=== PATIENT | female | born 1925 | race Caucasian/White ===

== ENCOUNTER 2016-10-14 03:14 | Inpatient (IN) | payer OTHER, MEDICARE ==
[2016-10-14] VITALS (11 sets, daily range): BP systolic 135–186; BP diastolic 67–88; PULSE 67–98; RESP 16–18; TEMP 96.5–99.5; O2SAT 93–100
[~2016-10-14] VITALS: Ht 157.5 cm; Wt 43.2 kg
[~2016-10-14 03:14] MED LIST: ASPI81TA82 PO; CHOL1CAP6 PO; DONE5TAB14 PO; NAME10TA PO; OCUVTAB PO; VITA400C36
--- NOTE | 2016-10-14 03:26 | PD ---
HPI Chief Complaint: Fall Time Seen by Provider: 03:19 Travel History International Travel<30 days: No Contact w/Intl Traveler<30days: No Traveled to known affect area: No History of Present Illness HPI 89-year-old female presents [facility] emergency department [facility] where she had a witnessed non-syncopal fall. Patient did hit her head and sustained a contusion with hematoma to the left forehead. Patient also injured her left wrist with obvious deformity. Patient is currently a [facility] of [facility] for rehabilitation of a right hip fracture. Patient is presently on Lovenox. Patient did not have loss of consciousness. Patient has history of dementia and is a poor historian. Patient presents via EMS transport with cervical collar in place and left wrist splinted. No obvious lower extremity shortening or internal or external rotation noted on exam. Patient reportedly was wearing an alarm padron and had managed to unbuckle the belt and stand up and when staff walked and upon her she lost her balance and fell. Patient has had no change in mentation reportedly since event. En route to the hospital patient received Zofran 4 mg IV and morphine sulfate 10 mg IV. [facility] Past Medical History Narrative Medical Dementia, hip fracture, Lovenox therapy, uti, appendectomy, hysterectomy, cystocele repair, no tobacco use; nursing notes reviewed Hx Anticoagulant Therapy: Yes (LOVENOX) Cancer: No Cardiovascular Problems: No Diabetes: No Endocrine: No Genitourinary: No Hepatitis: No Hiatal Hernia: No Immune Disorder: No Musculoskeletal: No Neurologic: No Psychiatric: No Reproductive: No Respiratory: No Thyroid Disease: No Past Surgical History Abdominal Surgery: Yes (APPENDECTOMY) Cardiac Surgery: No Endocrine Surgery: No Gynecologic Surgery: Yes (HYSTERECTOMY) Joint Replacement: No Pacemaker: No Thoracic Surgery: No Social History Tobacco Use: No Allergies-Medications (Allergen,Severity, Reaction): Coded Allergies: Exelon (Verified Allergy, Unknown, 10/14/16) Gabapentin (Verified Allergy, Unknown, 10/14/16) Rivastigmine (Verified Allergy, Unknown, 10/14/16) Uncoded Allergies: NKDA (Allergy, Unknown, 02/09/03) NONE (Allergy, Unknown, 02/09/03) Reported Meds & Prescriptions Reported Meds & Active Scripts Active Aspirin 325 Mg Tab 325 Mg PO DAILY Start Aspirin after Lovenox is completed. Lovenox Inj (Enoxaparin Sodium) 40 Mg/0.4 Ml Syr 40 Mg SQ DAILY Start Aspirin after Lovenox is completed. [place] (Hydrocodone-Acetaminophen) 5-325 mg Tab 1-2 Tab PO Q4H PRN Reported Senokot S (Sennosides-Docusate Sodium) 8.6-50 Mg Tab 2 Tab PO DAILY Docusate Sodium 100 Mg Cap 100 Mg PO BID Zoloft (Sertraline HCl) 50 Mg Tab 50 Mg PO DAILY Polyethylene Glycol 3350 Powder (Polyethylene Glycol) 17 Gm Pow 17 Gm PO DAILY Pantoprazole (Pantoprazole Sodium) 40 Mg Tab 40 Mg PO DAILY Latanoprost Opth Drops (Latanoprost) 0.005% Drops 1 Drop EACH EYE HS Refrigerate until opened. Donepezil 5 Mg Tab 5 Mg PO HS Review of Systems ROS Limitations: Clinical Condition, Poor Historian Physical Exam Narrative GENERAL: Elderly female in no acute distress no respiratory distress; GCS 14, baseline dementia with confusion poor historian. SKIN: Warm and dry. HEAD: Atraumatic. Normocephalic. Except for hematoma to the left temporal forehead. EYES: Pupils previous cataract surgery. No scleral icterus. No injection or drainage. ENT: No nasal bleeding or discharge. Mucous membranes pink and moist. NECK: Trachea midline. No JVD. Cervical collar in place. CARDIOVASCULAR: Regular rate and rhythm. RESPIRATORY: No accessory muscle use. Clear to auscultation. Breath sounds equal bilaterally. GASTROINTESTINAL: Abdomen soft, non-tender, nondistended. Hepatic and splenic margins not palpable. MUSCULOSKELETAL: Extremities without clubbing, cyanosis, or edema. Left wrist with obvious deformity, capillary refill brisk and less than 2 seconds per digit , no puncture wound or laceration, proximal left upper extremity without deformity or tenderness or skin tear; bilateral lower extremities no limb length discrepancy; bilateral dorsalis pedis pulses 2+ to palpation.. NEUROLOGICAL: Awake and alert. No obvious cranial nerve deficits. Motor grossly within normal limits. Five out of 5 muscle strength in the arms and legs. Normal speech. Data Data Last Documented VS Orders Electrocardiogram (10/14/16 03:19) Complete Blood Count With Diff (10/14/16 03:19) Comprehensive Metabolic Panel (10/14/16 03:19) Prothrombin Time / Inr (Pt) (10/14/16 03:19) Act Partial Throm Time (Ptt) (10/14/16 03:19) Type And Screen (10/14/16 03:19) Chest, Single Ap (10/14/16 03:19) Iv Access Insert/Monitor (10/14/16 03:19) Oximetry (10/14/16 03:19) Ecg Monitoring (10/14/16 03:19) Sodium Chloride 0.9% Flush (Ns Flush) (10/14/16 03:30) NPO (10/14/16 03:19) Wrist, Complete (Khh3ted) (10/14/16 ) Ct Brain W/O Iv Contrast(Rout) (10/14/16 ) Ct Cerv Spine W/O Contrast (10/14/16 ) Ct Pelvis W/O Iv Contrast (10/14/16 ) Pelvis, Ap Only (Routine) (10/14/16 03:19) Urinary Catheter Insert/Apply (10/14/16 05:11) Urinalysis - C+S If Indicated (10/14/16 05:11) Splint Or Brace Apply/Monitor (10/14/16 05:11) Admit To Inpatient (10/14/16 ) Vital Signs (Adult) Q4H (10/14/16 05:21) Activity Bed Rest (10/14/16 05:21) Intake + Output ANGELICA.QSHIFT (10/14/16 05:21) Sodium Chlor 0.9% 1000 Ml Inj (Ns 1000 M (10/14/16 05:21) Sodium Chloride 0.9% Flush (Ns Flush) (10/14/16 05:30) Sodium Chloride 0.9% Flush (Ns Flush) (10/14/16 09:00) Ondansetron Inj (Zofran Inj) (10/14/16 05:30) Bisacodyl Supp (Dulcolax Supp) (10/14/16 05:30) Comprehensive Metabolic Panel (10/15/16 06:00) Complete Blood Count With Diff (10/15/16 06:00) Acetaminophen (Tylenol) (10/14/16 05:30) Acetamin-Hydrocod 325-5 Mg ([place] 5-325 (10/14/16 05:30) Morphine Inj (Morphine Inj) (10/14/16 05:30) Inpatient Certification (10/14/16 ) Alprazolam (Xanax) (10/14/16 05:30) Docusate Sodium (Colace) (10/14/16 09:00) Donepezil (Aricept) (10/14/16 21:00) Latanoprost 0.005% Opth Soln (Xalatan 0. (10/14/16 21:00) Pantoprazole (Protonix) (10/14/16 09:00) Polyethylene Glycol (Miralax) (10/14/16 09:00) Quetiapine (Seroquel) (10/14/16 09:00) Docusate Sodium-Senna (Jennifer-Colace) (10/14/16 09:00) Sertraline (Zoloft) (10/14/16 09:00) NPO (10/14/16 05:28) Admit Order (Ed Use Only) (10/14/16 ) ^ Saline Lock (10/14/16 05:37) Resp Oxygen Alejandro C Titrat 1-4 L (10/14/16 ) Notify Dr: Other (10/14/16 05:37) Sodium Chloride 0.9% Flush (Ns Flush) (10/14/16 09:00) Sodium Chloride 0.9% Flush (Ns Flush) (10/14/16 05:45) Consult Orthopedic (10/14/16 05:37) Labs MDM Medical Decision Making Medical Screen Exam Complete: Yes Emergency Medical Condition: Yes Medical Record Reviewed: Yes Interpretation(s) EKG: Normal sinus rhythm rate 68 artifact is present at baseline but no apparent ST segment elevation ST segment depression ectopy or obvious abnormality CT pelvis w/o: CONCLUSION: 1. Nondisplaced mildly impacted fracture through the neck of the proximal left femur 2. Primary degenerative changes of the lower lumbar spine and pelvis. Ceasar Duran MD on October 14, 2016 at 4:30 Board Certified Radiologist. This report was verified electronically. CT cerv spine w/o: CONCLUSION: 1. No acute bony fracture. 2. Primary bony degenerative changes, disc degeneration and disc space narrowing throughout the cervical spine. 3. Bilateral facet arthritis at multiple levels. Left wrist xr: FINDINGS: There is diffuse soft tissue swelling around the wrist. Bony structures are osteopenic. There is a nondisplaced transverse fracture through the distal radius with extension to the articular surface. There is a nondisplaced avulsion fracture of the ulnar styloid process. No joint dislocation. There are degenerative changes of the first carpometacarpal joint. CONCLUSION: Collies fracture of the left wrist. Ceasar Duran MD on October 14, 2016 at 4:40 Board Certified Radiologist. This report was verified electronically. Ceasar Duran MD on October 14, 2016 at 4:26 Board Certified Radiologist. This report was verified electronically. brain w/o : CONCLUSION: 1. Bilateral cortical atrophy. Otherwise unremarkable CT brain for patient's age. 2. Focal soft tissue swelling left frontal/parietal area. Ceasar Duran MD on October 14, 2016 at 4:25 Board Certified Radiologist. This report was verified electronically. Pelvis xr: CONCLUSION: Nondisplaced fracture through the neck of the proximal left femur. Ceasar Duran MD on October 14, 2016 at 4:38 Board Certified Radiologist. This report was verified electronically. Differential Diagnosis Fall, minor closed head injury, ICH, cervical spine fracture subluxation cord injury, wrist fracture, pelvic fracture, hip fracture, coagulopathy, ACS, electrolyte disturbance, UTI, anemia Narrative Course Patient placed on monitor worker cervical collar In place and wrist splint replaced after direct visualization without evidence of open fracture; specimens collected and sent for resulting EKG performed which reveals no acute injury pattern change. Imaging studies ordered. At 4:20 AM patient's daughter is at bedside reports that she had a non-syncopal fall last Saturday with a right hip fracture had surgery on Saturday by Dr. Wolf and was admitted to rehabilitation facility on Saturday10/12/16. At 5:05 AM imaging studies resulted CT brain noncontrast reveals no acute intracranial abnormality atrophy is present; CT cervical spine reveals no acute bony injury chronic changes are noted, c-collar removed by me @ 5:05 am; CT pelvis noncontrast reveals nondisplaced femoral neck fracture and previous right hip fracture repairstable; chest x-ray no acute abnormality; left wrist x -ray reveals distal radius fracture without impaction or displacement that is intra-articular along with ulnar fractureColles' fracture; pelvic x-ray reveals femoral neck fracture. Family at bedside informed of imaging results. Call placed to orthopedic serviceDr. Wolf -discussed with Dr Titus Call placed to Dr Sanchez will accept patient for management of fractures/admit to medicine Last Lovenox administration confirmed 9AM 10/13/16 Physician Communication Physician Communication call placed to patient's orthopedist Dr Wolf --discussed with Dr Titus; call placed to Dr Sanchez will accept patient -keep npo; accepted by Dr Kee [facility] service Diagnosis Primary Impression: Closed left hip fracture Qualified Code: S72.002A - Closed left hip fracture, initial encounter Additional Impression: Closed fracture of left wrist Qualified Code: S62.102A - Closed fracture of left wrist, initial encounter Admitting Information Admitting Physician Requests: Admit Scripts Quetiapine (Seroquel)50 Mg Tab50 Mg PO HS #30 TAB Ref 0 Prov:Victorino Stein MD 10/18/16 Quetiapine (Seroquel)25 Mg Tab25 Mg PO AC BREAKFAST #60 TAB Ref 0 Prov:Victorino Stein MD 10/18/16 Magnesium Hydroxide Liq (Milk of Magnesia Liq)400 Mg/5 Ml Susp30 Ml PO DAILY PRN (CONSTIPATION) 30 Days Prov:Victorino Stein MD 10/18/16 Dronabinol (Marinol)2.5 Mg Cap2.5 Mg PO BID@11,16 #14 CAP Prov:Victorino Stein MD 10/18/16 Aspirin 325 Mg Rnw776 Mg PO DAILY #30 TAB Ref 0 Start Aspirin after Lovenox is completed. Prov:Jani Sanchez MD 10/14/16 Enoxaparin Inj (Lovenox Inj)40 Mg/0.4 Ml Syr40 Mg SQ DAILY #10 SYRINGE Ref 0 Start Aspirin after Lovenox is completed. Prov:Jani Sanchez MD 10/14/16 Hydrocodone-Acetaminophen ([place])5-325 mg Tab1-2 Tab PO Q4H PRN (PAIN) #60 TAB Ref 0 Prov:Jani Sanchez MD 10/14/16 Reta Hampton MD October 14, 2016 03:26 Reta Hampton MD October 14, 2016 03:26 1. No acute bony fracture. 2. Primary bony degenerative changes, disc degeneration and disc space narrowing throughout the cervical spine. 3. Bilateral facet arthritis at multiple levels. Left wrist xr: FINDINGS: There is diffuse soft tissue swelling around the wrist. Bony structures are osteopenic. There is a nondisplaced transverse fracture through the distal radius with extension to the articular surface. There is a nondisplaced avulsion fracture of the ulnar styloid process. No joint dislocation. There are degenerative changes of the first carpometacarpal joint. CONCLUSION: Collies fracture of the left wrist. Ceasar Duran MD on October 14, 2016 at 4:40 Board Certified Radiologist. This report was verified electronically. Ceasar Duran MD on October 14, 2016 at 4:26 Board Certified Radiologist. This report was verified electronically. brain w/o : CONCLUSION: 1. Bilateral cortical atrophy. Otherwise unremarkable CT brain for patient's age. 2. Focal soft tissue swelling left frontal/parietal area. Ceasar Duran MD on October 14, 2016 at 4:25 Board Certified Radiologist. This report was verified electronically. Pelvis xr: CONCLUSION: Nondisplaced fracture through the neck of the proximal left femur. Ceasar Duran MD on October 14, 2016 at 4:38 Board Certified Radiologist. This report was verified electronically. Differential Diagnosis Fall, minor closed head injury, ICH, cervical spine fracture subluxation cord injury, wrist fracture, pelvic fracture, hip fracture, coagulopathy, ACS, electrolyte disturbance, UTI, anemia Narrative Course Patient placed on monitor worker cervical collar In place and wrist splint replaced after direct visualization without evidence of open fracture; specimens collected and sent for resulting EKG performed which reveals no acute injury pattern change. Imaging studies ordered. At 4:20 AM patient's daughter is at bedside reports that she had a non-syncopal fall last Saturday with a right hip fracture had surgery on Saturday by Dr. Wolf and was admitted to rehabilitation facility on Saturday10/12/16. At 5:05 AM imaging studies resulted CT brain noncontrast reveals no acute intracranial abnormality atrophy is present; CT cervical spine reveals no acute bony injury chronic changes are noted, c-collar removed by me @ 5:05 am; CT pelvis noncontrast reveals nondisplaced femoral neck fracture and previous right hip fracture repairstable; chest x-ray no acute abnormality; left wrist x -ray reveals distal radius fracture without impaction or displacement that is intra-articular along with ulnar fractureColles' fracture; pelvic x-ray reveals femoral neck fracture. Family at bedside informed of imaging results. Call placed to orthopedic serviceDr. Wolf -discussed with Dr Titus Call placed to Dr Sanchez will accept patient for management of fractures/admit to medicine Last Lovenox administration confirmed 9AM 10/13/16 Physician Communication Physician Communication call placed to patient's orthopedist Dr Wolf --discussed with Dr Titus; call placed to Dr Sanchez will accept patient -keep npo; accepted by Dr Kee [facility] service Diagnosis Primary Impression: Closed left hip fracture Qualified Code: S72.002A - Closed left hip fracture, initial encounter Additional Impression: Closed fracture of left wrist Qualified Code: S62.102A - Closed fracture of left wrist, initial encounter Admitting Information Admitting Physician Requests: Admit Reta Hampton MD October 14, 2016 03:26
[2016-10-14] MEDS ORDERED: SODIUM CHLORIDE 0.9% FLUSH 10 ML FLUSH IVF PRN ×2 (03:30→05:45)
[2016-10-14] MEDS ORDERED: DONE5TAB7 PO (03:39)
[2016-10-14] MEDS ORDERED: LATA0.002 EACH EYE (03:41)
[2016-10-14] MEDS ORDERED: POLY17S PO (03:41)
[2016-10-14] MEDS ORDERED: PANT40TA3 PO (03:41)
[2016-10-14] MEDS ORDERED: DOCU100C PO (03:42)
[2016-10-14] MEDS ORDERED: ZOLO50TA PO (03:42)
[2016-10-14] MEDS ORDERED: SERO25TA PO (03:43)
[2016-10-14] MEDS ORDERED: NYST1000 SWISH-SWAL (03:44)
[2016-10-14] MEDS ORDERED: ALPR.5 PO (03:44)
[2016-10-14] MEDS ORDERED: ENOX30P SQ (03:45)
[2016-10-14] MEDS ORDERED: HYDRLIQ11 PO (03:46)
[2016-10-14] MEDS ORDERED: MILKSUS PO (03:46)
[2016-10-14] MEDS ORDERED: SENN1TAB17 PO (03:47)
[2016-10-14] MEDS ORDERED: ACET1CAP18 PO (03:47)
[2016-10-14 04:01] LABS: AUTOMATED NEUTROPHIL # 4.4 TH/MM3 (1.8-7.7); BASOPHIL # 0.1 TH/MM3 (0-0.2); BASOPHIL % 0.8 % (0.0-2.0); EOSINOPHIL # 0.2 TH/MM3 (0-0.4); EOSINOPHIL % 3.1 % (0.0-4.0); HEMO FLAGS DIFF FINAL; LYMPH % 17.4 % (9.0-44.0); LYMPHOCYTE # 1.1 TH/MM3 (1.0-4.8); MEAN CELL VOLUME 83.4 FL (80.0-100.0); MEAN CORPUSCULAR HEMOGLOBIN 26.7 PG (27.0-34.0); MONO % 7.9 % (0.0-8.0); NEUT % 70.8 % (16.0-70.0); PLATELET COUNT 389 TH/MM3 (150-450); RED BLOOD COUNT 4.08 MIL/MM3 (4.00-5.30); RED CELL DISTRIBUTION WIDTH 14.9 % (11.6-17.2); WHITE BLOOD COUNT 6.2 TH/MM3 (4.0-11.0)
[2016-10-14 04:16] LABS: APTT (PATIENT) 28.5 SEC (24.3-30.1); INTERNATIONAL NORMALIZED RATIO 1.1 RATIO; PROTHROMBIN TIME - PATIENT 12.1 SEC (9.8-11.6)
[2016-10-14 04:21] LABS: ALT (GPT) 29 U/L (10-53); ANION GAP 7 MEQ/L (5-15); AST (GOT) 25 U/L (15-37); BICARBONATE 29.6 MEQ/L (21.0-32.0); BLOOD UREA NITROGEN 21 MG/DL (7-18); CHLORIDE 107 MEQ/L (98-107); GLOMERULAR FILTRATION RATE 91 ML/MIN (>89); POTASSIUM 3.5 MEQ/L (3.5-5.1); SODIUM (NA) 144 MEQ/L (136-145)
[2016-10-14 04:23] LABS: ALKALINE PHOSPHATASE 64 U/L (45-117); TOTAL BILIRUBIN ADULT 0.3 MG/DL (0.2-1.0)
--- NOTE | 2016-10-14 04:28 | RADRPT ---
EXAM DATE/TIME: 10/14/2016 03:59 [facility] COMPARISON: No previous studies available for comparison. INDICATIONS : Trauma, fall. Hematoma to left side of head. RADIATION DOSE: 53.84 CTDIvol (mGy) MEDICAL HISTORY : Dementia. SURGICAL HISTORY : Appendectomy. Hysterectomy. ENCOUNTER: Initial ACUITY: 1 day PAIN SCALE: 5/10 LOCATION: cranial TECHNIQUE: Multiple contiguous axial images were obtained of the head. Using automated exposure control and adj ustment of the mA and/or kV according to patient size, radiation dose was kept as low as reasonably a chievable to obtain optimal diagnostic quality images. FINDINGS: CEREBRUM: The ventricles are normal for age. There is bilateral cortical atrophy. Chronic white matter changes are seen bilaterally. No evidence of midline shift, mass lesion, hemorrhage or acute infarction. No extra-axial fluid collections are seen. POSTERIOR FOSSA: The cerebellum and brainstem are intact. The 4th ventricle is midline. The cerebellopontine angle i s unremarkable. EXTRACRANIAL: The visualized portion of the orbits is intact. Focal soft tissue swelling over left frontal parietal area SKULL: The calvaria is intact. No evidence of skull fracture. CONCLUSION: 1. Bilateral cortical atrophy. Otherwise unremarkable CT brain for patient's age. 2. Focal soft tissue swelling left frontal/parietal area. Ceasar Duran MD on October 14, 2016 at 4:25 Board Certified Radiologist. This report was verified electronically.
--- NOTE | 2016-10-14 04:31 | RADRPT ---
EXAM DATE/TIME: 10/14/2016 03:59 [facility] COMPARISON: No previous studies available for comparison. INDICATIONS : Trauma, fall. RADIATION DOSE: 21.29 CTDIvol (mGy) MEDICAL HISTORY : Dementia. SURGICAL HISTORY : Appendectomy. Hysterectomy. ENCOUNTER: Initial ACUITY: 1 day PAIN SCALE: 0/10 LOCATION: neck TECHNIQUE: Volumetric scanning of the cervical spine was performed. Multiplanar reconstructions in the sagittal, coronal and oblique axial planes were performed. Using automated exposure control and adjustment o f the mA and/or kV according to patient size, radiation dose was kept as low as reasonably achievable to obtain optimal diagnostic quality images. FINDINGS: VERTEBRAE: Normal vertebral body height. No acute bony fracture. There is moderate diffuse primary degenerative changes, disc degeneration and disc space narrowing involving the entire cervical spine. ALIGNMENT: No evidence of subluxation. C2-C3: The bony spinal canal is normal in size. No evidence of disc bulge or herniation. The neural forami na are bilaterally patent. C3-C4: The bony spinal canal is normal in size. No evidence of disc bulge or herniation. The neural forami na are bilaterally patent. Bilateral facet arthritis. C4-C5: The bony spinal canal is normal in size. No evidence of disc bulge or herniation. The neural forami na are bilaterally patent. Bilateral Facet arthritis. C5-C6: The bony spinal canal is normal in size. No evidence of disc bulge or herniation. The neural forami na are bilaterally patent. Bilateral facet arthritis. C6-C7: The bony spinal canal is normal in size. No evidence of disc bulge or herniation. The neural forami na are bilaterally patent. Bilateral facet arthritis C7-T1: The bony spinal canal is normal in size. No evidence of disc bulge or herniation. The neural forami na are bilaterally patent. Bilateral facet arthritis CONCLUSION: 1. No acute bony fracture. 2. Primary bony degenerative changes, disc degeneration and disc space narrowing throughout the cervi vishal spine. 3. Bilateral facet arthritis at multiple levels. Ceasar Duran MD on October 14, 2016 at 4:26 Board Certified Radiologist. This report was verified electronically.
--- NOTE | 2016-10-14 04:35 | RADRPT ---
EXAM DATE/TIME: 10/14/2016 04:03 [facility] COMPARISON: PELVIS AP ONLY, October 14, 2016, 3:39. INDICATIONS : Trauma, fall. Possible left hip fracture. ORAL CONTRAST: No oral contrast ingested. RADIATION DOSE: 15.59 CTDIvol (mGy) MEDICAL HISTORY : Dementia. SURGICAL HISTORY : Appendectomy. Hysterectomy.Right hip surgery. ENCOUNTER: Initial ACUITY: 1 day PAIN SCALE: Non-responsive LOCATION: Bilateral pelvis TECHNIQUE: Volumetric scanning of the pelvis was performed. Using automated exposure control and adjustment of the mA and/or kV according to patient size, radiation dose was kept as low as reasonably achievable t o obtain optimal diagnostic quality images. FINDINGS: BOWEL/MESENTERY: The visualized small and large bowel demonstrate no acute abnormality. There is no free fluid. There is a diffuse amount of stool throughout the colon. Moderate bolus of stool the rectum. BLADDER: There is no wall thickening or mass. RETROPERITONEUM: There is no aneurysm or lymphadenopathy. REPRODUCTIVE: Within normal limits. INGUINAL: There is no lymphadenopathy or hernia. MUSCULOSKELETAL: There is a nondisplaced mildly impacted fracture through the neck of the proximal left femur. No join t dislocation. Evidence of previous internal fixation of the right hip. Diffuse primary degenerative changes of the lumbar spine and pelvis. CONCLUSION: 1. Nondisplaced mildly impacted fracture through the neck of the proximal left femur 2. Primary degenerative changes of the lower lumbar spine and pelvis. Ceasar Duran MD on October 14, 2016 at 4:30 Board Certified Radiologist. This report was verified electronically.
--- NOTE | 2016-10-14 04:36 | RADRPT ---
EXAM DATE/TIME: 10/14/2016 03:37 [facility] COMPARISON: No previous studies available for comparison. INDICATIONS : Trauma, fall. MEDICAL HISTORY : Unobtainable. SURGICAL HISTORY : Unobtainable. ENCOUNTER: Initial ACUITY: 1 day PAIN SCORE: Non-responsive. LOCATION: Bilateral chest FINDINGS: A single view of the chest demonstrates the lungs to be symmetrically aerated without evidence of mas s, infiltrate or effusion. There is some granulomas in the right lung base. The cardiomediastinal con tours are unremarkable. Osseous structures are intact. CONCLUSION: No acute intrathoracic disease. Ceasar Duran MD on October 14, 2016 at 4:34 Board Certified Radiologist. This report was verified electronically.
--- NOTE | 2016-10-14 04:40 | RADRPT ---
EXAM DATE/TIME: 10/14/2016 03:39 [facility] COMPARISON: No previous studies available for comparison. INDICATIONS : Trauma, fall. MEDICAL HISTORY : Unobtainable. SURGICAL HISTORY : Right hip pinning. ENCOUNTER: Initial ACUITY: 1 day PAIN SCORE: Non-responsive. LOCATION: Bilateral pelvis FINDINGS: There is a nondisplaced fracture through the neck of the proximal left femur. The femoral head remain s within the acetabulum. The bony structures of the pelvis are grossly intact. There is evidence of p revious internal fixation at the right hip joint. CONCLUSION: Nondisplaced fracture through the neck of the proximal left femur. Ceasar Duran MD on October 14, 2016 at 4:38 Board Certified Radiologist. This report was verified electronically.
--- NOTE | 2016-10-14 04:43 | RADRPT ---
EXAM DATE/TIME: 10/14/2016 03:51 [facility] COMPARISON: No previous studies available for comparison. INDICATIONS : Trauma, fall. MEDICAL HISTORY : None. SURGICAL HISTORY : None. ENCOUNTER: Initial ACUITY: 1 day PAIN SCORE: Non-responsive. LOCATION: Left wrist. FINDINGS: There is diffuse soft tissue swelling around the wrist. Bony structures are osteopenic. There is a no ndisplaced transverse fracture through the distal radius with extension to the articular surface. The re is a nondisplaced avulsion fracture of the ulnar styloid process. No joint dislocation. There are degenerative changes of the first carpometacarpal joint. CONCLUSION: Collies fracture of the left wrist. Ceasar Duran MD on October 14, 2016 at 4:40 Board Certified Radiologist. This report was verified electronically.
[2016-10-14] MEDS ORDERED: SODIUM CHLOR 0.9% 1000 ML INJ 1,000 ML IV SCH (05:21)
[2016-10-14] MEDS ORDERED: MORPHINE SULFATE 4 MG/ML INJ IV PRN (05:30)
[2016-10-14] MEDS ORDERED: ALPRAZolam 0.5 MG TAB PO PRN (05:30)
[2016-10-14] MEDS ORDERED: BISACODYL 10 MG SUPP RECTAL PRN ×2 (05:30→09:30)
[2016-10-14] MEDS ORDERED: ONDANSETRON HCL 4 MG/2 ML VIAL IVP PRN ×2 (05:30→09:30)
[2016-10-14] MEDS ORDERED: ACETAMINOPHEN/HYDROcodone 325 MG/5 MG TAB PO PRN ×2 (05:30→09:30)
[2016-10-14] MEDS ORDERED: SODIUM CHLORIDE 0.9% FLUSH 10 ML FLUSH IV FLUSH PRN (05:30)
--- NOTE | 2016-10-14 05:34 | HHI.HP ---
[facility] Primary Care Physician No Primary Care Physician Admission Diagnosis Diagnoses: (1) Fall Diagnosis: Principal (2) Closed left hip fracture Diagnosis: Principal (3) Closed fracture of left wrist Diagnosis: Principal (4) Dementia Diagnosis: Principal Travel History International Travel<30 Days: No Contact w/Intl Traveler <30 Da: No Traveled to Known Affected Are: No History of Present Illness This is an 89-year-old female with a PMH of Dementia and Anxiety who was brought to the ER by EMS from SNF after a witnessed mechanical fall by staff. No LOC reported, however patient was noted to have head trauma with subsequent hematoma to left forehead. Upon EMS arrival, patient noted to have obvious deformity of left wrist, s/p splint and c/o left hip pain. Recent Right Hip Sx at [facility] 1wk ago and transferred to SNF at time of discharge. On arrival, BP 137/83, HR 67, O2 sat 100% on RA, Afebrile. CBC essentially unremarkable. Chemistry unremarkable except for BU and 21. INR 1.1. Wrist X- ray with left Collies fracture. CT Pelvis with nondisplaced mildly impacted fracture through the neck of proximal left femur. CT Head with no acute findings except for focal soft tissue swelling left frontal/parietal area. CT C -spine with no acute findings. CXR with no acute findings. Pt's Orthopedist contacted by ER physician, recommended consultation w/ Dr. Sanchez for surgical intervention. Review of Systems Except as stated in HPI: all other systems reviewed are Neg ROS: 14 point review of systems otherwise negative. Past Family Social History Past Medical History PMH: Dementia and Anxiety Past Surgical History PAST SURGICAL HISTORY: Appendectomy, Hysterectomy, Right Hip Surgery Allergies: Coded Allergies: Exelon (Verified Allergy, Unknown, 10/14/16) Gabapentin (Verified Allergy, Unknown, 10/14/16) Rivastigmine (Verified Allergy, Unknown, 10/14/16) Uncoded Allergies: NKDA (Allergy, Unknown, 02/09/03) NONE (Allergy, Unknown, 02/09/03) Family History PAST FAMILY HISTORY: Reviewed. No h/o DM or CAD Social History PAST SOCIAL HISTORY: Negative for alcohol, tobacco or drugs. Physical Exam Vital Signs Vital Signs Date Time Temp Pulse Resp B/P Pulse Ox O2 Delivery O2 Flow Rate FiO2 10/14/16 03:34 73 16 99 Nasal Cannula 2 10/14/16 03:33 99 Nasal Cannula 2 10/14/16 03:18 98.0 67 16 137/83 100 Physical Exam PE: GENERAL: Thin, chronically ill-appearing elderly white female in no acute distress. HEENT: PERRLA, EOMI. No scleral icterus or conjunctival pallor. No lid lag or facial droop. Left frontal hematoma CARDIOVASCULAR: Regular rate and rhythm. No obvious murmurs to auscultation. No chest tenderness to palpation. RESPIRATORY: No obvious rhonchi or wheezing. Clear to auscultation. Breath sounds equal bilaterally. GASTROINTESTINAL: Abdomen soft, non-tender, nondistended. BS normal. MUSCULOSKELETAL: Extremities without clubbing, cyanosis, or edema. No obvious deformities. LUE in splint NEUROLOGICAL: Awake, alert and oriented x4. No focal neurologic deficits. Moving both upper and lower extremities spontaneously. Laboratory Laboratory Tests Test 10/14/16 03:20 White Blood Count 6.2 Red Blood Count 4.08 Hemoglobin 10.9 Hematocrit 34.0 Mean Corpuscular Volume 83.4 Mean Corpuscular Hemoglobin 26.7 Mean Corpuscular Hemoglobin 32.0 Concent Red Cell Distribution Width 14.9 Platelet Count 389 Mean Platelet Volume 7.4 Neutrophils (%) (Auto) 70.8 Lymphocytes (%) (Auto) 17.4 Monocytes (%) (Auto) 7.9 Eosinophils (%) (Auto) 3.1 Basophils (%) (Auto) 0.8 Neutrophils # (Auto) 4.4 Lymphocytes # (Auto) 1.1 Monocytes # (Auto) 0.5 Eosinophils # (Auto) 0.2 Basophils # (Auto) 0.1 CBC Comment DIFF FINAL Differential Comment Prothrombin Time 12.1 Prothromb Time International 1.1 Ratio Activated Partial 28.5 Thromboplast Time Sodium Level 144 Potassium Level 3.5 Chloride Level 107 Carbon Dioxide Level 29.6 Anion Gap 7 Blood Urea Nitrogen 21 Creatinine 0.62 Estimat Glomerular Filtration 91 Rate Random Glucose 122 Calcium Level 8.6 Total Bilirubin 0.3 Aspartate Amino Transf 25 (AST/SGOT) Alanine Aminotransferase 29 (ALT/SGPT) Alkaline Phosphatase 64 Total Protein 5.9 Albumin 2.8 Blood Type A POSITIVE Antibody Screen NEGATIVE Blood Bank Comment Result Diagram: 10/14/1631910/14/16319 Assessment and Plan Problem List: (1) Fall ICD Code: W19.XXXA Status: Acute (2) Closed left hip fracture ICD Code: S72.002A Status: Acute (3) Closed fracture of left wrist ICD Code: S62.102A Status: Acute (4) Dementia ICD Code: F03.90 Status: Acute Assessment and Plan A/P: 1. Fall: s/p mechanical witnessed fall at SNF, no LOC, +head trauma. CT Head w/ no acute findings except for frontal hematoma, CT C-Spine w/ no acute fracture, images reviewed by me. On Lovenox for recent Right Hip Sx, will hold in light of recent fall/contusion and likely surgical intervention. 2. Left Hip Fx: CT Pelvis w/ mildly impacted fracture through neck of proximal right femur, images reviewed by me. Pt's Orthopedist contacted by ER physician, recommended consult w/ Dr. Sanchez for surgical intervention. NPO, IVF, analgesics/antiemetics as needed. 3. Left Wrist Fx: s/p fall as above, Hand X-ray w/ left collies fracture, Dr. Sanchez to be consulted. Treatment as above. 4. Dementia: seemingly at baseline. Resume home medications, Ativan prn if needed. 5. DVT Prophylaxis: Hold Lovenox for likely upcoming surgical intervention. 6. Social work for d/c planning as needed. 7. Case discussed w/ ER physician at length. Physician Certification 2 Midnight Certification Type: Admission for Inpatient Services Order for Inpatient Services The services are ordered in accordance with Medicare regulations or non- Medicare payer requirements, as applicable. In the case of services not specified as inpatient-only, they are appropriately provided as inpatient services in accordance with the 2-midnight benchmark. Estimated LOS (days): 2 days is the estimated time the patient will need to remain in the hospital, assuming treatment plan goals are met and no additional complications. Post-Hospital Plan: Not yet determined Problem Qualifiers (1) Closed left hip fracture: Qualified Code: S72.002A - Closed left hip fracture, initial encounter (2) Closed fracture of left wrist: Qualified Code: S62.102A - Closed fracture of left wrist, initial encounter Graciela Kee MD October 14, 2016 05:34
[2016-10-14 06:09] LABS: BLOOD, URINE TRACE (NEG); COMMENT (UR) CATH-CULT NOT IND; CULTURE IF INDICATED CATH CULTURE NOT IND; GLUCOSE,URINE NEG (NEG); KETONE, URINE NEG (NEG); MUCUS URINE FEW /lpf (OCC); NITRITE,URINE NEG (NEG); SQUAMOUS EPITHELIAL CELL URINE 1 /hpf (0-5); URINE COLOR YELLOW (YELLW/STRAW)
[2016-10-14] MEDS ORDERED: METOPROLOL TARTRATE 25 MG TAB PO PRN (08:00)
[2016-10-14] MEDS ORDERED: SODIUM CHLORID 0.9% 500 ML IV PRN (08:00)
[2016-10-14] MEDS ORDERED: POVIDONE IODINE 5% (ANTISEPSIS KIT) 4 APPLICATIONS EACH NARE PRN (08:00)
[2016-10-14] MEDS ORDERED: LACTATED RINGER'S 1000 ML IV PRN (08:00)
[2016-10-14] MEDS ORDERED: CHLORHEXIDINE GLUCONATE 2 % 1 PACK (2 CLOTHS) TOPICAL PRN (08:00)
[2016-10-14] MEDS ORDERED: INSULIN HUMAN REGULAR 1,000 UNITS/10 ML VIAL SQ PRN (08:00)
--- NOTE | 2016-10-14 08:25 | MB ---
cc: WOOD LEONARD M.D. DATE OF CONSULTATION: 10/14/2016 REASON FOR CONSULTATION Left hip fracture and left wrist fracture. HISTORY OF PRESENT ILLNESS The patient is a 89-year-old female who has a history of dementia and anxiety. The patient just recently had a right hip fracture which was treated by Dr. Wolf in [facility]. The patient was treated with percutaneous screw fixation. The patient had just been discharged from the hospital and was transferred to the rehab facility. Apparently, the patient got out of bed herself and fell. She came to [facility]. She was found to have a left hip fracture now and also left wrist fracture. The patient has dementia and when I saw her she could not tell me where she was hurting. She cannot discuss whether she had numbness or tingling. Unable to assess alleviating or worsening factors for her pain. This patient had multiple imaging studies completed including multiple CAT scans. REVIEW OF SYSTEMS The review of systems is unobtainable due to her current mental status. PAST MEDICAL HISTORY Positive for dementia and anxiety. PAST SURGICAL HISTORY 1. Appendectomy. 2. Hysterectomy. 3. Recent right hip percutaneous screw fixation. ALLERGIES TO MEDICATIONS EXELON, GABAPENTIN AND RIVASTIGMINE. FAMILY HISTORY Noncontributory. SOCIAL HISTORY The patient does not smoke or drink alcohol. Again, recent admission to a rehab facility. PHYSICAL EXAMINATION VITAL SIGNS: The patient's pulse is 78, respirations 18, blood pressure 154/77. This patient is somnolent but arousable. She is not oriented. She shows signs of dementia. Her daughter is at the bedside during the entire interview. HEAD: Her head is atraumatic. GENERAL: In general she does appear thin and chronically ill but no acute distress. NECK: Her neck is supple. HEART: Regular rate and rhythm. LUNGS: Clear to auscultation bilaterally. ABDOMEN: Soft, nontender, nondistended. EXTREMITIES: Right hip has a dressing on it with no surrounding erythema and no swelling about the bilateral lower extremities. The left hip has pain with log rolling. Mild swelling about the left hip is noted. There is no wounds noted. Left upper extremity is currently splinted. She has brisk cap refill about the fingertips. Right upper extremity had good active range of motion of the shoulder, elbow and wrist. She has no CVA tenderness. LABORATORY DATA Laboratory studies shows white cell count is 6.2, hematocrit 34.0, platelets 389, creatinine 0.62, glucose 122. IMAGING STUDIES I have reviewed multiple images including the reports. X-rays of the left wrist shows interarticular fracture of the distal radius significantly displaced and angulated. There is a pelvis CT and pelvis x-ray, both of which show a mildly displaced femoral neck fracture with valgus alignment. The report on the head CT shows atrophy, otherwise unremarkable. Report of the cervical spine CT shows no acute bony fracture along with positive for degenerative changes. Chest x-ray reads no acute intrathoracic disease. IMPRESSION 1. Dementia. 2. Recent history of right hip percutaneous screw fixation by Dr. Wolf. 3. Left hip mildly displaced femoral neck fracture. 4. Left distal radius fracture intra-articular, displaced and angulated. DECISION MAKING Ultimately, decision making process in this patient is highly complex. The patient has two fractures that are significant which can create significant functional impairment in her. She recently had the hip fracture repaired by Dr. Wolf for which she needed to be limited weightbearing. However, the patient was unable to follow her restrictions and got out of bed on her own. I did explain to the patient's daughter that I would generally recommend surgery for the left hip given that this is a hip fracture, as nonoperative management has significant chance of displacement of the fracture which can lead to complete inability to ambulate. Typically this type of fracture pattern I would potentially consider percutaneous screw fixation just like she had on the other side. However, if we were to move forward with this type of surgery the patient would need to be limited weightbearing on the left hip, essentially toe touch on the left hip which she is already toe touch on the right hip which would make her bed bound for about 6 weeks which increases chance of having significant complications such as DVT, pulmonary embolus, bed sores and pneumonia. We discussed the option of a more invasive procedure which would consist of a left hip hemiarthroplasty which would allow her to weight-bear as tolerated afterwards. Especially given her history of noncompliance, this may be a better option for her since she will likely walk on the hip anyway, so as to reduce the chance of having shortening of femoral neck with chronic malunion or nonunion. Of course this is a more invasive procedure, so there are increased risks such as bleeding, infection, leg length discrepancy, hip dislocation and then of course there are medical potential complications such as blood clots, pneumonia, heart attack, stroke and . The patient was on Lovenox previously. Her last dose was apparently yesterday morning, according to the nurses. Additionally, she has a bad wrist fracture which typically required quite a bit of immobilization, which would make the use of a walker more difficult. Additionally, the patient is going to be noncompliant, she may end up trying to use her wrist to hold onto objects as she is trying to ambulate. We discussed the option of performing open reduction, internal fixation of the left wrist which would help provide better alignment for the wrist and also likely provide some better stability if she were to use the wrist. We could also potentially have the patient use a platform walker if she was able to comply with the use of this, if we were to move forward with surgical management, we may be able to use a smaller splint such as a volar splint as apposed to big sugar-tong splint, if we were to move forward with surgical management, there are risks associated with the surgery to the wrist as well. The patient's daughter understands there are risks such as bleeding, infection, continued pain, loss of range of motion of the wrist, weakness of the wrist or need for reoperation or removal of hardware. Based on the extensive conversations with the patient's daughter, she would like to move forward with the left hip hemiarthroplasty and left distal radius open reduction, internal fixation. All questions have been answered. MD VAMSHI Fu/MAGDALENE /7:47 AM /8:01 AM
[2016-10-14] MEDS: QUEtiapine FUMARATE 25 MG TAB PO SCH ×2 (08:46→19:43)
[2016-10-14] MEDS: PANTOPRAZOLE SOD 40 MG DELAYED RELEASE TAB PO SCH (08:46)
[2016-10-14] MEDS: SERTRALINE HCL 50 MG TAB PO SCH (08:46)
[2016-10-14] MEDS: DOCUSATE SODIUM 50 MG/SENNA 8.6 MG TAB PO SCH (08:46)
[2016-10-14] MEDS: POLYETHYLENE GLYCOL 17 GM PKG PO SCH (08:46)
[2016-10-14] MEDS ORDERED: DOCUSATE SODIUM 100 MG CAP PO SCH (09:00)
[2016-10-14] MEDS ORDERED: SODIUM CHLORIDE 0.9% FLUSH 10 ML FLUSH IV FLUSH SCH ×2 (09:00)
[2016-10-14] MEDS ORDERED: TRANEXAMIC ACID INJ 1,000 MG/10 ML AMP ONE (09:02)
[2016-10-14] MEDS ORDERED: ceFAZolin INJ 1,000 MG VIAL ONE (09:04)
[2016-10-14] MEDS ORDERED: VANCOMYCIN HCL 1000 MG VIAL ONE (09:04)
[2016-10-14] MEDS ORDERED: GENTAMICIN SULFATE 80 MG/2 ML VIAL ONE ×2 (09:05→10:34)
[2016-10-14] MEDS ORDERED: ENOX40P SQ (09:26)
[2016-10-14] MEDS ORDERED: ASPI325T PO (09:26)
[2016-10-14] MEDS ORDERED: NORC5TAB PO (09:26)
[2016-10-14] MEDS ORDERED: MAGNESIUM HYDROXIDE SUSP 30 ML CUP PO PRN (09:30)
[2016-10-14] MEDS ORDERED: ZOLPIDEM TARTRATE 5 MG TAB PO PRN (09:30)
[2016-10-14] MEDS ORDERED: diphenhydrAMINE HCL 50 MG/ML VIAL IV PRN (09:30)
[2016-10-14] MEDS ORDERED: ALUMINUM/MAGNESIUM/SIMETH 30 ML CUP PO PRN (09:30)
[2016-10-14] MEDS ORDERED: Post-op Orders (for Pharmacy) MISC XX ONE (09:30)
[2016-10-14] MEDS ORDERED: NALOXONE HCL 0.4 MG/ML AMP IV PRN (09:30)
[2016-10-14] MEDS ORDERED: SODIUM CHLORIDE 0.9% FLUSH 5 ML FLUSH IVF PRN (09:30)
[2016-10-14] MEDS ORDERED: BUPIVACAINE/EPINEPHRINE 0.5% 50 ML VIAL ONE (09:58)
[2016-10-14] MEDS ORDERED: PHENYLEPH/NS 1000 MCG/10 ML SYR IV ONE (10:33)
[2016-10-14] MEDS ORDERED: ONDANSETRON HCL 4 MG/2 ML VIAL IV PUSH ONE (10:33)
[2016-10-14] MEDS ORDERED: ePHEDrine/NS 25 MG/5 ML SYR IV ONE (10:33)
[2016-10-14] MEDS ORDERED: PROPOFOL 200 MG/20 ML AMP IV ONE (10:33)
[2016-10-14] MEDS ORDERED: LACTATED RINGER'S 1000 ML INJ 1,000 ML IV ONE (10:34)
[2016-10-14] MEDS ORDERED: SODIUM CHLOR 0.9% 250 ML INJ 500 ML IV ONE (10:34)
[2016-10-14] MEDS ORDERED: SUGAMMADEX SODIUM 200 MG/2 ML VIAL IV PUSH ONE ×2 (11:01)
--- NOTE | 2016-10-14 11:06 | PD.OP ---
cc: Jani Sanchez MD Operative Report Date of Surgery: October 14, 2016 Preoperative Diagnosis: Left hip displaced femoral neck fracture. Left distal radius three-part intra- articular fracture. Postoperative Diagnosis: Same Procedure: Left hip hemiarthroplasty as treatment for femoral neck fracture. Left distal radius fracture open reduction and internal fixation of three-part intra-articular fracture. Anesthesia: Gen. Surgeon: Jani Sanchez Hand Binder Cutter(s): IVAN Matute The surgical procedure was assisted by my Advanced Registered Nurse Practitioner. My CARPENTER SUPERVISOR WOODEN SHIP presence was necessary throughout this case for the manipulation and positioning of the surgical extremity. My CARPENTER SUPERVISOR WOODEN SHIP was assisting me throughout the duration of this procedure. The skill set of an Advance Registered Nurse Practitioner was medically necessary to complete this procedure. During the surgical case, the technical designer was working at the back table and the Advance Registered Nurse Practitioner was directly assisting me. Operation and Findings: IMPLANT DESCRIPTION: 1. Corail femoral stem size 12, no collar, standard offset. 2. Bipolar femoral head/neck 46, 1.5. 3. Synthes locking precontoured distal radius plate standard size. ESTIMATED BLOOD LOSS: 200 cc. Tourniquet time: 11 minutes at 250 mmHg of pressure on the left upper extremity. JUSTIFICATION FOR PROCEDURE: This patient has a displaced femoral neck fracture and displaced intra- articular distal radius fracture. The patient understands the risks of surgery include but are not limited to injury to nerves, blood vessels, bleeding, infection, leg length discrepancy, continued pain, inability to ambulate, DVT, pulmonary embolus, pneumonia, stroke, heart attack, and . See the consult for more details on decision-making process. PROCEDURE: The patient was brought back to the operative theatre. Adequate anesthesia was obtained. The patient received intravenous vancomycin and Ancef. The patient was carefully placed on the operative table in the lateral decubitus position with an axillary roll and a well-padded down leg. The lower extremity was prepped and draped in the usual sterile fashion. We proceeded with a standard curvilinear incision centered around the tip of the greater trochanter. We then dissected through the deep fascia and placed a Charnley retractor protecting the sciatic nerve. The greater trochanteric bursa was reflected. We then incised through the piriformis attachment and tagged this with a #2 FiberWire. We then incised through the capsule in a T- shaped fashion and tagged this with a #2 FiberWire as well. We identified a displaced femoral neck fracture. An osteotomy was performed through the residual femoral neck. This bone was then removed followed by removal of the femoral head. The acetabulum was inspected and adequate cartilage stock was identified. We then trialed the femoral head in the acetabulum. The proximal femur was prepared with a rongeur, then a box osteotome, then a canal finder followed by a lateralizing reamer. We sequentially broached the proximal femur. We calcar planed the proximal femur and irrigated removing any remnants of the bone. We trialed the hip with the broach in place. The final femoral stem was impacted into position. Leg lengths were evaluated. We evaluated stability of the hip with the hip in the "position of sleep" and the hip flexed up to 90 and internally rotated. We additionally tested both a "shuck" test and hip extension, confirming there was no undue tension while flexing the knee to 90 during full hip extension. The final bipolar head was impacted and the hip was reduced. Once again we irrigated. We then repaired the capsule and the piriformis with the FiberWire suture. The deep fascia was closed with a #2 Stratafix, followed by 2-0 Vicryl in the skin and christine. The leg was dressed and a canvas knee split was applied. The patient was then carefully positioned into the supine position. The left upper extremity was prepped and draped in the usual sterile fashion. Local anesthetic was given, and the arm was exsanguinated. The tourniquet was raised to 250 mmHg of pressure. We made a standard incision over the volar aspect of the forearm. We then dissected through the flexor carpi radialis sub- sheath. The pronator quadratus was reflected. We now visualized the distal radius fracture very well. The fracture was anatomically reduced both visually and via fluoroscopy. We provisionally held the fracture reduced and then applied a Synthes precontoured distal radius plate into the appropriate position. The plate was secured to the distal radius first with the sliding screw hole. This was then followed by locking screws distally and proximally. We took final fluoroscopic imaging of the wrist. We found no intra-articular penetration of the screws. The patient had full range of motion of the wrist with no crepitus. The tourniquet was released and hemostasis was achieved. The patient had a 2+ radial pulse. We irrigated the incision thoroughly. We then closed skin with 2 -0 Vicryl followed by 3-0 nylon. The arm was dressed and a volar splint was applied. The postoperative plan for the wrist is to start early range of motion of the wrist. We will allow the use of a platform walker on the left arm The post-op plan for the left lower extremity is to weight-bear as tolerated on the left lower extremity. Note that the patient is toe-touch weightbearing on the right lower extremity due to recent percutaneous screw fixation of a femoral neck fracture by another physician. We will follow posterior total hip precautions on the left side, including the use of a canvas knee splint. DVT prophylaxis will be performed with SCDcasie, JU lebron, early mobilization, and Lovenox followed by aspirin. Jani Sanchez MD October 14, 2016 11:06
--- NOTE | 2016-10-14 11:23 | RADRPT ---
EXAM DATE/TIME: 10/14/2016 10:52 [facility] COMPARISON: WRIST LEFT COMPLETE ([id number]), October 14, 2016, 3:51. INDICATIONS : Surgical repair. MEDICAL HISTORY : None. SURGICAL HISTORY : None. ENCOUNTER: Initial ACUITY: 1 day PAIN SCORE: Non-responsive. LOCATION: Left wrist. CONCLUSION: Fluoroscopic images during placement of compression plate along the distal radius fixating fracture. Ulnar styloid fracture noted. Suraj Montalvo MD on October 14, 2016 at 11:20 Board Certified Radiologist. This report was verified electronically.
[2016-10-14] MEDS ORDERED: fentaNYL CITRATE 250 MCG/5 ML AMP ONE (11:29)
[2016-10-14] MEDS ORDERED: TRANEXAMIC ACID IV SCH (12:00)
[2016-10-14] MEDS ORDERED: SODIUM CHLORIDE 0.9% IV SCH (12:00)
--- NOTE | 2016-10-14 12:09 | RADRPT ---
EXAM DATE/TIME: 10/14/2016 11:28 [facility] COMPARISON: No previous studies available for comparison. INDICATIONS : Post operative imaging for hip replacement. MEDICAL HISTORY : None. SURGICAL HISTORY : None. ENCOUNTER: Initial ACUITY: 1 day PAIN SCORE: Non-responsive. LOCATION: Left hip. FINDINGS: Examination of the left hip was performed with AP Pelvis. Left hip arthroplasty. Postsurgical changes . No hardware loosening. The acetabulum is grossly intact. There are 4 screws through the right hip. CONCLUSION: Left hip arthroplasty. Suraj Montalvo MD on October 14, 2016 at 12:06 Board Certified Radiologist. This report was verified electronically.
[2016-10-14] MEDS: SODIUM CHLOR 0.9% 1000 ML INJ 1,000 ML IV SCH ×3 (12:20→21:53)
--- NOTE | 2016-10-14 15:03 | EKG ---
Date Performed: 10/14/2016 Time Performed: 03:21:37 PTAGE: 89 years EKG: Sinus rhythm Since previous tracing, no significant change noted NORMAL ECG PREVIOUS TRACING : 09/03/2002 12.01 DOCTOR: Fawn Zambrano Interpretating Date/Time 10/14/2016 15:02:04
[2016-10-14] MEDS: ACETAMINOPHEN/HYDROcodone 325 MG/5 MG TAB PO PRN (19:43)
[2016-10-14] MEDS: DONEPEZIL HCL 5 MG TAB PO SCH (19:43)
[2016-10-14] MEDS: SODIUM CHLORIDE 0.9% FLUSH 5 ML FLUSH IVF SCH (19:43)
[2016-10-14] MEDS: LATANOPROST 0.005% OPHT SOLN 2.5 ML BTL EACH EYE SCH (19:44)
[2016-10-15] VITALS (9 sets, daily range): BP systolic 132–173; BP diastolic 61–85; PULSE 89–106; RESP 16–19; TEMP 96.7–99.9; O2SAT 92–97
[2016-10-15] MEDS ORDERED: ENALAPRILAT 1.25 MG/ML VIAL IV PUSH PRN (00:30)
[2016-10-15 05:12] LABS: AUTOMATED NEUTROPHIL # 9.3 TH/MM3 (1.8-7.7); BASOPHIL # 0.1 TH/MM3 (0-0.2); BASOPHIL % 0.5 % (0.0-2.0); EOSINOPHIL % 0.4 % (0.0-4.0); HEMATOCRIT 28.8 % (35.0-46.0); HEMO FLAGS DIFF FINAL; LYMPH % 9.7 % (9.0-44.0); LYMPHOCYTE # 1.1 TH/MM3 (1.0-4.8); MEAN CELL VOLUME 82.8 FL (80.0-100.0); MEAN CORPUSCULAR HEMOGLOBIN 27.3 PG (27.0-34.0); MONO % 8.7 % (0.0-8.0); NEUT % 80.7 % (16.0-70.0); PLATELET COUNT 371 TH/MM3 (150-450); RED BLOOD COUNT 3.49 MIL/MM3 (4.00-5.30); RED CELL DISTRIBUTION WIDTH 14.9 % (11.6-17.2); WHITE BLOOD COUNT 11.5 TH/MM3 (4.0-11.0)
[2016-10-15 05:38] LABS: ALKALINE PHOSPHATASE 68 U/L (45-117); ALT (GPT) 24 U/L (10-53); ANION GAP 7 MEQ/L (5-15); AST (GOT) 32 U/L (15-37); BICARBONATE 27.8 MEQ/L (21.0-32.0); BLOOD UREA NITROGEN 8 MG/DL (7-18); CHLORIDE 105 MEQ/L (98-107); GLOMERULAR FILTRATION RATE 122 ML/MIN (>89); POTASSIUM 3.3 MEQ/L (3.5-5.1); SODIUM (NA) 140 MEQ/L (136-145); TOTAL BILIRUBIN ADULT 0.3 MG/DL (0.2-1.0)
[2016-10-15] MEDS: SODIUM CHLORIDE 0.9% FLUSH 5 ML FLUSH IVF SCH ×2 (09:00→21:00)
[2016-10-15] MEDS: SERTRALINE HCL 50 MG TAB PO SCH (09:48)
[2016-10-15] MEDS: PANTOPRAZOLE SOD 40 MG DELAYED RELEASE TAB PO SCH ×2 (09:48→09:49)
[2016-10-15] MEDS: POLYETHYLENE GLYCOL 17 GM PKG PO SCH (09:48)
[2016-10-15] MEDS: DOCUSATE SODIUM 50 MG/SENNA 8.6 MG TAB PO SCH ×2 (09:48→09:49)
[2016-10-15] MEDS: QUEtiapine FUMARATE 25 MG TAB PO SCH ×2 (09:48→21:00)
[2016-10-15] MEDS: ENOXAPARIN SODIUM 40 MG/0.4 ML SYRINGE SQ SCH (09:53)
[2016-10-15] MEDS: ACETAMINOPHEN/HYDROcodone 325 MG/5 MG TAB PO PRN (09:53)
[2016-10-15] MEDS ORDERED: POTASSIUM CHLORIDE 10 MEQ CONTROLLED RELEASE TAB PO ONE (10:30)
[2016-10-15] MEDS: MORPHINE SULFATE 4 MG/ML INJ IV PUSH PRN ×3 (10:47→21:01)
--- NOTE | 2016-10-15 11:24 | PD.CONS ---
Consult Service Palliative Care . Consult Requested By Dr. Stein . Primary Care Physician No Primary Care Physician Reason for Consultation a. To assist with evaluation and management of symptoms including: pain, confusion. b. To assist medical decision maker(s) with: better understanding of current medical conditions; weighing benefits/burdens of medical treatment options; making medical treatment decisions. . HPI History of Present Illness Ms. Castano is an 89 year old female with past medical history of dementia and anxiety. Patient had recent right hip fracture treated with percutaneous screw fixation by Dr. Wolf in [place] was transferred to rehab with limited weight-bearing upon discharge. Patient presented to [facility] emergency department on 10/14/16 after patient got out of bed and fell. She was found to have left hip mildly displaced femoral neck fracture and left distal radius fracture. Orthopedic surgery, Dr. Salazar was consulted. Given recent prior right hip fracture, surgical intervention became more complicated in consideration of repair of left hip. Patient underwent left hip hemiarthroplasty and left open reduction internal fixation of left distal radius on 10/14/16. Hospice was consulted, however family remained undecided regarding goals, considering rehab versus hospice care. Palliative care was consulted to assist with verification of treatment goals per family request. . Function/Cognitive Trajectory Patient was living at home with 24 hour hired caregivers until approximately1.5 months ago. She was then moved to [facility]/ [facility] at that time she was ambulatory, able to feed herself, she was able to communicate though was confused and did not always make sense. After her first fall she was working with PT, remained confused and was wheelchair dependent due to non-weight bearing status on right leg. . Review of Systems Constitutional: COMPLAINS OF: Fatigue, Change in appetite (decreased eating only small amounts. ), Generalized weakness Gastrointestinal: COMPLAINS OF: Constipation, Anorexia Musculoskeletal: COMPLAINS OF: Joint pain, Decreased range of motion Hematologic/Lymphatics: COMPLAINS OF: Bruising Neurologic: COMPLAINS OF: Poor Balance Psychiatric: COMPLAINS OF: Anxiety, Confusion Past Family Social History Coded Allergies: Exelon (Verified Allergy, Unknown, 10/14/16) Gabapentin (Verified Allergy, Unknown, 10/14/16) Rivastigmine (Verified Allergy, Unknown, 10/14/16) Uncoded Allergies: NKDA (Allergy, Unknown, 02/09/03) NONE (Allergy, Unknown, 02/09/03) Past Medical History Dementia Anxiety Migraines Uterine Prolapse Anemia Squamous cell carcinoma right hand (excised 2012) . Past Surgical History Appendectomy 1949 Uterine Suspension 1962 Hysterectomy Right Hip Surgery Wide excision SCC right hand 2012 . Reported Medications Reported Meds & Active Scripts Active Reported Tylenol (Acetaminophen) 325 Mg Cap 650 Mg PO Q6H PRN Senokot S (Sennosides-Docusate Sodium) 8.6-50 Mg Tab 2 Tab PO DAILY Milk of Magnesia Liq (Magnesium Hydroxide) 400 Mg/5 Ml Susp 30 Ml PO ONCE Hydrocodone-Chlorpheniramine 12 HR Liq 10-8 Mg/5 Ml Liq 5 Ml PO Q12H PRN Lovenox Inj (Enoxaparin Sodium) 30 Mg/0.3 Ml Syr 30 Mg SQ DAILY Nystatin Liq 100,000 unit/ml Susp 5 Ml SWISH-SWAL QID Xanax (Alprazolam) 0.5 Mg Tab 0.5 Mg PO Q8H PRN Seroquel (Quetiapine Fumarate) 25 Mg Tab 25 Mg PO BID Docusate Sodium 100 Mg Cap 100 Mg PO BID Zoloft (Sertraline HCl) 50 Mg Tab 50 Mg PO DAILY Polyethylene Glycol 3350 Powder (Polyethylene Glycol) 17 Gm Pow 17 Gm PO DAILY Pantoprazole (Pantoprazole Sodium) 40 Mg Tab 40 Mg PO DAILY Latanoprost Opth Drops (Latanoprost) 0.005% Drops 1 Drop EACH EYE HS Refrigerate until opened. Donepezil 5 Mg Tab 5 Mg PO HS . Current Medications Medications (Trade) Dose Ordered Sig/Ayesha Route Start Time Stop Time Status Last Admin (Tylenol) 650 mg Q6H PRN PO 10/14/16 05:30 (Xanax) 0.5 mg Q8H PRN PO 10/14/16 05:30 (Aricept) 5 mg HS PO 10/14/16 21:00 10/14/16 19:43 (Xalatan 0.005% Opth Soln) 1 drop HS EACH EYE 10/14/16 21:00 10/14/16 19:44 (Protonix) 40 mg DAILY PO 10/14/16 09:00 10/15/16 09:49 (Miralax) 17 gm DAILY PO 10/14/16 09:00 10/15/16 09:48 (SEROquel) 25 mg BID PO 10/14/16 09:00 10/15/16 09:48 (Jennifer-Colace) 2 tab DAILY PO 10/14/16 09:00 10/15/16 09:49 Sertraline HCl 50 mg 50 mg DAILY PO 10/14/16 09:00 10/15/16 09:48 (NS 1000 ml Inj) 1,000 ml @ 100 mls/hr Q10H IV 10/14/16 09:20 10/14/16 19:42 (NS Flush) 2 ml UNSCH PRN IVF 10/14/16 09:30 (NS Flush) 2 ml BID IVF 10/14/16 21:00 10/15/16 09:00 (Lovenox Inj) 40 mg Q24H SQ 10/15/16 10:15 10/24/16 10:16 10/15/16 09:53 (Geraldine 5-325 Mg) 1 tab Q4H PRN PO 10/14/16 09:30 10/15/16 09:53 (Geraldine 5-325 Mg) 2 tab Q4H PRN PO 10/14/16 09:30 (Theragran M Tab) 1 tab BID PO 10/15/16 21:00 12/14/16 20:59 (Zofran Inj) 4 mg Q6H PRN IVP 10/14/16 09:30 (Colace) 100 mg BID PO 10/15/16 21:00 (Mag-Al Plus Susp Liq) 30 ml Q6H PRN PO 10/14/16 09:30 (Ambien) 5 mg HS PRN PO 10/14/16 09:30 (Dulcolax Supp) 10 mg DAILY PRN RECTAL 10/14/16 09:30 (Milk Of Magnesia Liq) 30 ml DAILY PRN PO 10/14/16 09:30 10/14/16 19:44 (Narcan Inj) 0.4 mg UNSCH PRN IV 10/14/16 09:30 (Benadryl Inj) 25 mg Q6H PRN IV 10/14/16 09:30 (Morphine Inj) 2 mg Q3H PRN IV PUSH 10/14/16 09:30 (Vasotec Inj) 1.25 mg Q6H PRN IV PUSH 10/15/16 00:30 . Family History Father and aunt with heart disease. . Substance Use Tobacco: Never smoked. Alcohol: None. Prescription med abuse: None. Illicits: None. . Psychosocial History summer 2015. Well supported by children (all who live in [place]). Daughter, Tanisha is here from [place]. . Spiritual/Cultural Factors Unknown. . Living Will: Copy in medical record Date completed: 01/13/16 Health Care Surrogate(s): Patient is incapacitated and will not regain capacity. Designated health care surrogate, Mariia Castano though all children appear to be working together to make decisions. . Documented care wishes: Standard Living Will. Today's verbally stated goals: Patient incapacitated and will not regain capacity. Family/friends goals: Desires continued aggressive care at this time. Family seems open to considering transition to comfort if delirium/confusion, appetite does not improve, should patient have additional setbacks or not be able to rehabilitate. . Ethical and Legal Issues Patient is incapacitated and will not regain capacity. Designated health care surrogate, Mariia Castano though all children appear to be working together to make decisions. . Physical Exam Vital Signs Date Time Temp Pulse Resp B/P Pulse Ox O2 Delivery O2 Flow Rate FiO2 10/15/16 08:35 92 21 10/15/16 07:03 98.9 98 16 136/63 93 10/15/16 04:05 99.9 99 19 162/76 97 10/15/16 00:05 99.5 106 19 173/85 96 10/14/16 20:02 98 Nasal Cannula 3.00 10/14/16 19:45 99.5 98 18 172/82 97 10/14/16 19:40 97 Nasal Cannula 2.00 10/14/16 16:00 97.5 84 16 135/67 98 10/14/16 14:15 93 Nasal Cannula 3.00 10/14/16 13:45 96.5 79 16 140/69 93 10/14/16 13:00 68 16 146/75 100 Nasal Cannula 2 10/14/16 12:30 66 16 142/66 100 Nasal Cannula 2 10/14/16 12:15 66 16 154/83 100 Nasal Cannula 2 10/14/16 12:00 66 16 157/68 100 Nasal Cannula 2 10/14/16 11:45 68 16 154/81 100 Nasal Cannula 2 10/14/16 11:30 72 16 129/58 96 Nasal Cannula 2 10/14/16 11:25 97.4 68 16 152/67 94 Nasal Cannula 2 10/14/16 10/15/16 19:00 07:00 Intake Total 50 ml 1814 ml Output Total 800 ml 1275 ml Balance -750 ml 539 ml Intake Oral 240 ml IV Total 50 ml 1574 ml Output Urine Total 800 ml 1275 ml # Bowel Movements 0 0 Exam CONSTITUTIONAL/GENERAL: This is an elderly, confused patient. TUBES/LINES/DRAINS: PIV, Heredia, SCDs. SKIN: No jaundice, rashes, or lesions. Ecchymoses on upper extremities. Bilateral hip dressings in place, LUE splint in place, patient will not keep her arm in sling. HEAD: Atraumatic. Normocephalic. EYES: Pupils equal and round and reactive. Extraocular motions intact. No scleral icterus. No injection or drainage. ENT: Hearing grossly normal. Nose without bleeding or purulent drainage. NECK: Trachea midline. CARDIOVASCULAR: Regular rate and rhythm without murmurs, gallops, or rubs. No JVD. RESPIRATORY/CHEST: Symmetric, unlabored respirations. Clear to auscultation. GASTROINTESTINAL: Abdomen soft, non-tender, nondistended. Bowel sounds present. GENITOURINARY: Without palpable bladder distension. Heredia catheter in place. MUSCULOSKELETAL: Extremities with trace edema. No mottling or clubbing. LYMPHATICS: No palpable cervical or supraclavicular adenopathy. NEUROLOGICAL: Awake and alert, confused. Sentences don't make sense. PSYCHIATRIC: Confused. . Diagnostic Tests Laboratory Laboratory Tests Test 10/14/16 10/14/16 10/15/16 03:20 05:50 04:33 White Blood Count 6.2 TH/MM3 11.5 TH/MM3 (4.0-11.0) (4.0-11.0) Red Blood Count 4.08 MIL/MM3 3.49 MIL/MM3 (4.00-5.30) (4.00-5.30) Hemoglobin 10.9 GM/DL 9.5 GM/DL (11.6-15.3) (11.6-15.3) Hematocrit 34.0 % 28.8 % (35.0-46.0) (35.0-46.0) Mean Corpuscular Volume 83.4 FL 82.8 FL (80.0-100.0) (80.0-100.0) Mean Corpuscular Hemoglobin 26.7 PG 27.3 PG (27.0-34.0) (27.0-34.0) Mean Corpuscular Hemoglobin 32.0 % 33.0 % Concent (32.0-36.0) (32.0-36.0) Red Cell Distribution Width 14.9 % 14.9 % (11.6-17.2) (11.6-17.2) Platelet Count 389 TH/MM3 371 TH/MM3 (150-450) (150-450) Mean Platelet Volume 7.4 FL 7.5 FL (7.0-11.0) (7.0-11.0) Neutrophils (%) (Auto) 70.8 % 80.7 % (16.0-70.0) (16.0-70.0) Lymphocytes (%) (Auto) 17.4 % 9.7 % (9.0-44.0) (9.0-44.0) Monocytes (%) (Auto) 7.9 % (0.0-8.0) 8.7 % (0.0-8.0) Eosinophils (%) (Auto) 3.1 % (0.0-4.0) 0.4 % (0.0-4.0) Basophils (%) (Auto) 0.8 % (0.0-2.0) 0.5 % (0.0-2.0) Neutrophils # (Auto) 4.4 TH/MM3 9.3 TH/MM3 (1.8-7.7) (1.8-7.7) Lymphocytes # (Auto) 1.1 TH/MM3 1.1 TH/MM3 (1.0-4.8) (1.0-4.8) Monocytes # (Auto) 0.5 TH/MM3 1.0 TH/MM3 (0-0.9) (0-0.9) Eosinophils # (Auto) 0.2 TH/MM3 0.0 TH/MM3 (0-0.4) (0-0.4) Basophils # (Auto) 0.1 TH/MM3 0.1 TH/MM3 (0-0.2) (0-0.2) CBC Comment DIFF FINAL DIFF FINAL Differential Comment Prothrombin Time 12.1 SEC (9.8-11.6) Prothromb Time International 1.1 RATIO Ratio Activated Partial 28.5 SEC Thromboplast Time (24.3-30.1) Sodium Level 144 MEQ/L 140 MEQ/L (136-145) (136-145) Potassium Level 3.5 MEQ/L 3.3 MEQ/L (3.5-5.1) (3.5-5.1) Chloride Level 107 MEQ/L 105 MEQ/L (98-107) (98-107) Carbon Dioxide Level 29.6 MEQ/L 27.8 MEQ/L (21.0-32.0) (21.0-32.0) Anion Gap 7 MEQ/L (5-15) 7 MEQ/L (5-15) Blood Urea Nitrogen 21 MG/DL (7-18) 8 MG/DL (7-18) Creatinine 0.62 MG/DL 0.48 MG/DL (0.50-1.00) (0.50-1.00) Estimat Glomerular Filtration 91 ML/MIN (>89) 122 ML/MIN Rate (>89) Random Glucose 122 MG/DL 117 MG/DL (74-106) (74-106) Calcium Level 8.6 MG/DL 8.2 MG/DL (8.5-10.1) (8.5-10.1) Total Bilirubin 0.3 MG/DL 0.3 MG/DL (0.2-1.0) (0.2-1.0) Aspartate Amino Transf 25 U/L (15-37) 32 U/L (15-37) (AST/SGOT) Alanine Aminotransferase 29 U/L (10-53) 24 U/L (10-53) (ALT/SGPT) Alkaline Phosphatase 64 U/L (45-117) 68 U/L (45-117) Total Protein 5.9 GM/DL 5.8 GM/DL (6.4-8.2) (6.4-8.2) Albumin 2.8 GM/DL 2.7 GM/DL (3.4-5.0) (3.4-5.0) Blood Type A POSITIVE Antibody Screen NEGATIVE Blood Bank Comment Urine Color YELLOW (YELLW/STRAW) Urine Turbidity HAZY (CLEAR) Urine pH 7.0 (5.0-8.5) Urine Specific [place] 1.019 (1.002-1.035) Urine Protein TRACE mg/dL (NEG-TRACE) Urine Glucose (UA) NEG mg/dL (NEG) Urine Ketones NEG mg/dL (NEG) Urine Occult Blood TRACE (NEG) Urine Nitrite NEG (NEG) Urine Bilirubin NEG (NEG) Urine Urobilinogen LESS THAN 2.0 MG/DL (LESS THAN 2.0) Urine Leukocyte Esterase TRACE (NEG) Urine RBC 6 /hpf (0-3) Urine WBC 3 /hpf (0-5) Urine Squamous Epithelial 1 /hpf (0-5) Cells Urine Amorphous Sediment RARE Urine Mucus FEW /lpf (OCC) Microscopic Urinalysis Comment CATH-CULT NOT IND Result Diagram: 10/15/1643210/15/16432 Imaging Last Impressions Pelvis X-Ray 10/14/16318 Signed Impressions: Service Date/Time: Friday, October 14, 2016 03:39 - CONCLUSION: Nondisplaced fracture through the neck of the proximal left femur. Ceasar Duran MD Chest X-Ray 10/14/16318 Signed Impressions: Service Date/Time: Friday, October 14, 2016 03:37 - CONCLUSION: No acute intrathoracic disease. Ceasar Duran MD Wrist X-Ray 10/14/16 Signed Impressions: Service Date/Time: Friday, October 14, 2016 10:52 - CONCLUSION: Fluoroscopic images during placement of compression plate along the distal radius fixating fracture. Ulnar styloid fracture noted. Suraj Montalvo MD Pelvis CT 10/14/16 0000 Signed Impressions: Service Date/Time: Friday, October 14, 2016 04:03 - CONCLUSION: 1. Nondisplaced mildly impacted fracture through the neck of the proximal left femur 2. Primary degenerative changes of the lower lumbar spine and pelvis. Ceasar Duran MD Hip and Pelvis X-Ray 10/14/16 Signed Impressions: Service Date/Time: Friday, October 14, 2016 11:28 - CONCLUSION: Left hip arthroplasty. Suraj Montalvo MD Head CT 10/14/16 Signed Impressions: Service Date/Time: Friday, October 14, 2016 03:59 - CONCLUSION: 1. Bilateral cortical atrophy. Otherwise unremarkable CT brain for patient's age. 2. Focal soft tissue swelling left frontal/parietal area. Ceasar Duran MD Cervical Spine CT 10/14/16 0000 Signed Impressions: Service Date/Time: Friday, October 14, 2016 03:59 - CONCLUSION: 1. No acute bony fracture. 2. Primary bony degenerative changes, disc degeneration and disc space narrowing throughout the cervical spine. 3. Bilateral facet arthritis at multiple levels. Ceasar Duran MD . Patient/Family Conference Present at Family Conference: Met with daughterTnaisha at bedside. Also present Anastasiya Mast LCSW. . Family Conference Time (mins): 45 Family Conference Location: Bedside, Hallway Issues Discussed: * Palliative care role, purpose, approach * Additional medical, psychosocial, and spiritual history * Patients general health, functional status, and cognitive changes in the months leading up to the current hospitalization * Patient/family understanding of the current medical problems * Patient/family understanding of prognosis * Patients goals of care as best understood from advance directives and/or conversations and/or values * Current medical treatment options and benefits/burdens of those options * Likely scenarios comparing ongoing aggressive care with a transition to comfort measures only * Questions answered to the best of my ability * Palliative care contact information provided Assessment and Plan Disease Oriented Problem List: (1) Dementia (2) Fall (3) Closed left hip fracture (4) Closed fracture of left wrist Symptom Scale: (1) Pain 0-10 Scale: Unable to quantify Comment: patient with dementia and delirium unable to quantify or qualify pain , appears painful with movement. . (2) Confusion 0-10 Scale: Unable to quantify Comment: patient with dementia and delirium. . Pertinent Non-Medical Issues Psychosocial: . Support by children in [place]. Spiritual: Unknown. Legal: Patient is incapacitated and will not regain capacity. Designated health care surrogate, Mariia Castano though all children appear to be working together to make decisions. Ethical issues impacting care: No known concerns at this time. . Important Contacts * Sanna, daughter/HCS: [phone] or [phone] * Tanisha, daughter: [phone] or [phone] (cell) . Prognosis Ms. Castano is an 89-year-old female with progressively worsening dementia since summer 2015 when her of 69 years now with recent fracture of right hip and admitted with left hip and left wrist fractures. Given underlying dementia and ongoing decline, overall prognosis appears poor for meaningful recovery. . Code Status: Full Code (family considering code status.) Plan * Patient is incapacitated and will not regain capacity. Designated health care surrogate, Mariia Castano though all children appear to be working together to make decisions. * FULL CODE * Palliative care met with patient (who is confused and unable to participate) and daughter (Tanisha here from [place]). Also present Anastasiya Mast LCSW and IVAN Elliott with orthopedics. Family desires continued aggressive care, family will discuss Code status, understands options upon DC include SNF for rehab vs. comfort focused care with hospice. Family hopes to wait a day or 2 to see if delirium will improve to determine likelihood of rehabilitation. Palliative care offered family conference call with [place], will continue to follow. * SYMPTOMS: Pain: pain with movement, she is unable to quantify or qualify pain due to dementia/ delirium. Has PRN Hydrocodone and Morphine, sparing need. Will monitor. Confusion: secondary to dementia likely complicated by post op delirium. * Palliative care number provided. * Palliative care will continue to follow throughout hospital course to assist with symptom management and clarification of goals as needed. Thank you for the opportunity to participate in the care of Ms. Castano. POOL FIELDS October 15, 2016 11:24
--- NOTE | 2016-10-15 12:26 | PD.ORT.PN ---
Subjective Post Op Day #: 1 Subjective Remarks Patient is resting in bed with some confusion and agitation. Patient not c/o pain. Family is at bedside talking with palliative care nurse about options for hospice as patient has some delirium and refusing to eat or take medications. Plan is to allow for time to see if dementia/delirium improves following surgery. Objective Vitals Vital Signs Date Time Temp Pulse Resp B/P Pulse Ox O2 Delivery O2 Flow Rate FiO2 10/15/16 11:22 99.3 94 16 136/61 95 10/15/16 08:35 92 21 10/15/16 07:03 98.9 98 16 136/63 93 10/15/16 04:05 99.9 99 19 162/76 97 10/15/16 00:05 99.5 106 19 173/85 96 10/14/16 20:02 98 Nasal Cannula 3.00 10/14/16 19:45 99.5 98 18 172/82 97 10/14/16 19:40 97 Nasal Cannula 2.00 10/14/16 16:00 97.5 84 16 135/67 98 10/14/16 14:15 93 Nasal Cannula 3.00 10/14/16 13:45 96.5 79 16 140/69 93 10/14/16 13:00 68 16 146/75 100 Nasal Cannula 2 10/14/16 12:30 66 16 142/66 100 Nasal Cannula 2 10/14/16 12:15 66 16 154/83 100 Nasal Cannula 2 I/O 10/14/16 10/14/16 10/14/16 10/15/16 10/15/16 10/15/16 07:00 15:00 23:00 07:00 15:00 23:00 Intake Total 50 ml 879 ml 935 ml Output Total 800 ml 625 ml 650 ml Balance -750 ml 254 ml 285 ml Intake Oral 120 ml 120 ml IV Total 50 ml 759 ml 815 ml Output Urine Total 800 ml 625 ml 650 ml # Bowel Movements 0 0 Result Diagram: 10/15/16 0433 10/15/16 043 Procedures Left hip hemiarthroplasty as treatment for femoral neck fracture. Left distal radius fracture open reduction and internal fixation of three-part intra-articular fracture. Objective Remarks Patient is confused today and slightly agitated. LLE Dressing is C/D/I. Patient moves toes and has sensation to light touch about the left foot. CKS in place. + NVI. No obvious tenderness to palpation of calf LUE Splint and sling intact and dry. Sling is in place. Patient moves fingers. Patient has BCR X 5. Minimal swelling to hand with mild ecchymosis. Patient moves her left elbow WNLs. Assessment & Plan Ortho Post Op Day #: 1 Problem List: Assessment and Plan POD #1: Left hip hemiarthroplasty as treatment for femoral neck fracture. Left distal radius fracture open reduction and internal fixation of three-part intra-articular fracture. 1. NWB Left UE 2. WBAT Left LE 3. Patient is TTWB on RLE secondary to recent percutaneous screw fixation by outside physician 4. Platform walker for ambulation 5. Maintain splint and sling to LUE 6. Lovenox for DVT prophylaxis 7. Anticipatory discharge to SNF once medically cleared. There is a chance that the patient will be placed on Hospice if her delirium does not improve and if she continues to refuse medication. 8. F/U with Dr. Sanchez in the office in 1-2 weeks. Roland Yeung October 15, 2016 12:26
[2016-10-15] MEDS: SODIUM CHLOR 0.9% 1000 ML INJ 1,000 ML IV SCH (15:20)
[2016-10-15] MEDS: POTASSIUM CHLOR 10 MEQ PREMIX 100 ML IV SCH ×4 (18:55→21:27)
[2016-10-15] MEDS ORDERED: SENNOSIDES SYRUP 8.8 MG/5 ML CUP PO ONE (19:15)
--- NOTE | 2016-10-15 19:16 | HHI.PR ---
Subjective Remarks Patient seen this morning around 11 AM. She is awake, disoriented. Daughter reports that she usuallyfeels names, however is speaking in a completely disorganized fashion. Patient does not give any direct answer regarding pain. She does make good eye contact and instinctively holds caregivers hands. Objective Vital Signs Date Time Temp Pulse Resp B/P Pulse Ox O2 Delivery O2 Flow Rate FiO2 10/15/16 15:38 99.2 89 16 156/67 94 10/15/16 11:22 99.3 94 16 136/61 95 10/15/16 09:48 Room Air 10/15/16 08:35 92 21 10/15/16 07:03 98.9 98 16 136/63 93 10/15/16 04:05 99.9 99 19 162/76 97 10/15/16 00:05 99.5 106 19 173/85 96 10/14/16 20:02 98 Nasal Cannula 3.00 10/14/16 19:45 99.5 98 18 172/82 97 10/14/16 19:40 97 Nasal Cannula 2.00 I/O 10/14/16 10/14/16 10/14/16 10/15/16 10/15/16 10/15/16 07:00 15:00 23:00 07:00 15:00 23:00 Intake Total 50 ml 879 ml 935 ml 240 ml Output Total 800 ml 625 ml 650 ml Balance -750 ml 254 ml 285 ml 240 ml Intake Oral 120 ml 120 ml 240 ml IV Total 50 ml 759 ml 815 ml Output Urine Total 800 ml 625 ml 650 ml # Voids 2 # Bowel Movements 0 0 0 Result Diagram: 10/15/16 0433 10/15/16 0433 Objective Remarks GENERAL: patient lying in bed. Speaking in clear but disorganized language. Appears comfortable. Completely disoriented. Pleasant. Making good eye contact, holding hands. SKIN: Warm and dry. HEAD: Normocephalic. EYES: No scleral icterus. No injection or drainage. NECK: Supple, trachea midline. No JVD. CARDIOVASCULAR: Regular rate and rhythm without murmurs, gallops, or rubs. RESPIRATORY: Breath sounds equal bilaterally. No accessory muscle use. GASTROINTESTINAL: Abdomen soft, non-tender, nondistended. MUSCULOSKELETAL: No cyanosis, or edema. postoperative hip not examined. Peripheral perfusion is intact. BACK: Nontender without obvious deformity. No CVA tenderness. A/P Assessment and Plan //Status post mechanical fall //Recent right hip ORIF and outside facility //ORIF left hip fracture 10/14 this admission -Head imaging with frontal hematoma, no other acute findings. -Postoperative management as per surgical service Pain management as per surgical service Monitor for return of bowel function. Laxatives ordered. //Severe Alzheimer's dementia. //Encephalopathy. Opioid induced. -Patient had been living at memory care unit. -She has been refusing medications here. -Daughter at bedside. Recommend continue to reorient as necessary. Try to avoid sedating medications. //Hypokalemia. Potassium 3.3 on 10/15. Patient refused by mouth replacement. Replaced IV. //Left wrist fracture. Status post fall. Management as per orthopedics. Appreciate assistance. //Prophylaxis. As per surgical service. Discharge Planning patient has severe Alzheimer's dementia. She will likely need rehabilitationfor bilateral hip fractures. Appreciate case management assistance. Hospice and palliative care following.. Victorino Stein MD October 15, 2016 19:16
[2016-10-15] MEDS: DOCUSATE SODIUM 100 MG CAP PO SCH (21:00)
[2016-10-15] MEDS: MULTIVITAMINS/MINERALS THERAPEUTIC TAB PO SCH (21:00)
[2016-10-15] MEDS: DONEPEZIL HCL 5 MG TAB PO SCH (21:02)
[2016-10-15] MEDS: LATANOPROST 0.005% OPHT SOLN 2.5 ML BTL EACH EYE SCH (21:25)
[2016-10-16 03:16] VITALS: BP 159/69; PULSE 94; RESP 17; TEMP 97.9; O2SAT 93
[2016-10-16 07:29] LABS: AUTOMATED NEUTROPHIL # 11.2 TH/MM3 (1.8-7.7); BASOPHIL # 0.1 TH/MM3 (0-0.2); BASOPHIL % 0.4 % (0.0-2.0); EOSINOPHIL # 0.1 TH/MM3 (0-0.4); EOSINOPHIL % 0.5 % (0.0-4.0); HEMATOCRIT 26.8 % (35.0-46.0); HEMO FLAGS DIFF FINAL; LYMPH % 9.9 % (9.0-44.0); LYMPHOCYTE # 1.4 TH/MM3 (1.0-4.8); MEAN CELL VOLUME 82.8 FL (80.0-100.0); MEAN CORPUSCULAR HEMOGLOBIN 27.3 PG (27.0-34.0); MONO % 6.8 % (0.0-8.0); NEUT % 82.4 % (16.0-70.0); PLATELET COUNT 347 TH/MM3 (150-450); RED BLOOD COUNT 3.24 MIL/MM3 (4.00-5.30); RED CELL DISTRIBUTION WIDTH 14.8 % (11.6-17.2); WHITE BLOOD COUNT 13.6 TH/MM3 (4.0-11.0)
[2016-10-16 07:39] LABS: BICARBONATE 25.7 MEQ/L (21.0-32.0); POTASSIUM 3.4 MEQ/L (3.5-5.1)
[2016-10-16 08:00] VITALS: BP 171/77; PULSE 95; RESP 20; TEMP 99.8; O2SAT 95
[2016-10-16] MEDS: QUEtiapine FUMARATE 25 MG TAB PO SCH ×2 (08:01→20:56)
[2016-10-16] MEDS: SERTRALINE HCL 50 MG TAB PO SCH (08:01)
[2016-10-16] MEDS: POLYETHYLENE GLYCOL 17 GM PKG PO SCH (08:02)
[2016-10-16] MEDS: MORPHINE SULFATE 4 MG/ML INJ IV PUSH PRN ×2 (08:14→15:24)
[2016-10-16] MEDS: DOCUSATE SODIUM 100 MG CAP PO SCH ×2 (09:00→20:56)
[2016-10-16] MEDS: MULTIVITAMINS/MINERALS THERAPEUTIC TAB PO SCH ×2 (09:00→20:56)
[2016-10-16] MEDS: SODIUM CHLORIDE 0.9% FLUSH 5 ML FLUSH IVF SCH ×2 (09:00→20:35)
[2016-10-16] MEDS: PANTOPRAZOLE SOD 40 MG DELAYED RELEASE TAB PO SCH (09:00)
[2016-10-16 09:57] VITALS: O2SAT 96
[2016-10-16] MEDS: ENOXAPARIN SODIUM 40 MG/0.4 ML SYRINGE SQ SCH (10:15)
--- NOTE | 2016-10-16 10:28 | HHI.PR ---
Subjective Remarks Patient somnolent, wakes up for exam. Confused as before. Discussed with daughter at bedside. Patient is very somnolent, poor appetite. Daughter has been asking for pain medications when patient's blood pressure is up. Daughter does not know patient's baseline blood pressure. Advised daughter to not pay attention to blood pressure when asking for pain meds. Objective Vital Signs Date Time Temp Pulse Resp B/P Pulse Ox O2 Delivery O2 Flow Rate FiO2 10/16/16 08:00 99.8 95 20 171/77 95 10/16/16 03:16 97.9 94 17 159/69 93 10/15/16 23:39 96.7 97 17 132/78 94 10/15/16 23:17 Room Air 10/15/16 21:06 16 10/15/16 19:28 98.0 98 17 132/80 93 10/15/16 19:13 93 21 10/15/16 15:38 99.2 89 16 156/67 94 10/15/16 11:22 99.3 94 16 136/61 95 I/O 10/15/16 10/15/16 10/15/16 10/16/16 10/16/16 10/16/16 07:00 15:00 23:00 07:00 15:00 23:00 Intake Total 935 ml 240 ml 371 ml 439 ml Output Total 650 ml 0 ml Balance 285 ml 240 ml 371 ml 439 ml Intake Oral 120 ml 240 ml 120 ml 120 ml IV Total 815 ml 251 ml 319 ml Output Urine Total 650 ml Stool Total 0 ml # Voids 2 3 2 # Bowel Movements 0 0 Result Diagram: 10/16/16 0529 10/16/16 0529 Objective Remarks GENERAL: patient lying in bed. Patient somnolent, wakes up for exam. Confused as before. SKIN: Warm and dry. HEAD: Normocephalic. EYES: No scleral icterus. No injection or drainage. NECK: Supple, trachea midline. No JVD. CARDIOVASCULAR: Regular rate and rhythm without murmurs, gallops, or rubs. RESPIRATORY: Breath sounds equal bilaterally. No accessory muscle use. GASTROINTESTINAL: Abdomen soft, non-tender, nondistended. MUSCULOSKELETAL: No cyanosis, or edema. postoperative hip not examined. Peripheral perfusion is intact. BACK: Nontender without obvious deformity. No CVA tenderness. A/P Assessment and Plan ==== 10/16/16 Somnolence. Discontinue Xanax. Poor appetite. Add Marinol. Discussed risks and benefits with daughter. Advised daughter to try to minimize pain medications improved alertness, appetite. //Status post mechanical fall //Recent right hip ORIF and outside facility //ORIF left hip fracture 10/14 this admission -Head imaging with frontal hematoma, no other acute findings. -Postoperative management as per surgical service Pain management as per surgical service Monitor for return of bowel function. Laxatives again ordered. //Somnolence //Poor appetite -Trying Marinol //Severe Alzheimer's dementia. //Encephalopathy. Opioid induced. -Patient had been living at memory care unit. -She has been refusing medications here. -Daughter at bedside. Recommend continue to reorient as necessary. Try to avoid sedating medications. //Hypokalemia. Need to monitor and replace as necessary. //Left wrist fracture. Status post fall. Management as per orthopedics. Appreciate assistance. //Prophylaxis. As per surgical service. Discharge Planning patient has severe Alzheimer's dementia. She will likely need rehabilitationfor bilateral hip fractures. Appreciate case management assistance. Hospice and palliative care following.. Victorino Stein MD October 16, 2016 10:28
[2016-10-16] MEDS ORDERED: MAGNESIUM HYDROXIDE SUSP 30 ML CUP PO ONE (10:30)
[2016-10-16] MEDS ORDERED: SENNOSIDES SYRUP 8.8 MG/5 ML CUP PO ONE (10:30)
[2016-10-16] MEDS: D5-1/2 NS + KCL 40 MEQ INJ 1,000 ML IV SCH (10:30)
[2016-10-16] MEDS: DRONABINOL 2.5 MG CAP PO SCH ×2 (11:00→16:00)
[2016-10-16 12:00] VITALS: BP 142/80; PULSE 90; RESP 19; TEMP 98.8; O2SAT 95
--- NOTE | 2016-10-16 15:58 | HHI.HCPN ---
Reason for visit a. To assist with evaluation and management of symptoms including: pain, confusion. b. To assist medical decision maker(s) with: better understanding of current medical conditions; weighing benefits/burdens of medical treatment options; making medical treatment decisions. . Subjective/Interval History Patient seen and examined in room. Caregiver, Jackie at bedside. No family at bedside. Patient appears more alert, speech is more clear. Answers some simple questions appropriately. She tells me her left "leg hurts." She is unable to further qualify or quantify pain, she is able to point to her left upper extremity in the region of her left hip. She is says "I cannot walk." She does not seem to like the brace and SCDs on legs. Caregiver was able to get her to eat some lunch, though still small amounts. Tmax 99.8. Intermittent hypertension. No BM since admission. WBC 13.6, hemoglobin 8.8, hematocrit 26.8, platelet 347. Labs stable. No new imaging. PRN hydrocodone available, none given today. PRN morphine 2 mg IV times 2 doses today. . Family/friend interactions Spoke with caregiver at bedside. No family at bedside. Previously provided my cell number. Will continue to follow. . Advance Directives Living Will: Copy in medical record Advance Directive Specifics Date completed: 01/13/16 Health Care Surrogate(s): Patient is incapacitated and will not regain capacity. Designated health care surrogate, Mariia Castano though all children appear to be working together to make decisions. . Documented care wishes: Standard Living Will. Significant change in goals: Goals remain aggressive at this time. . Objective Vital Signs Date Time Temp Pulse Resp B/P Pulse Ox O2 Delivery O2 Flow Rate FiO2 10/16/16 12:00 98.8 90 19 142/80 95 10/16/16 08:00 99.8 95 20 171/77 95 10/16/16 03:16 97.9 94 17 159/69 93 10/15/16 23:39 96.7 97 17 132/78 94 10/15/16 23:17 Room Air 10/15/16 21:06 16 10/15/16 19:28 98.0 98 17 132/80 93 10/15/16 19:13 93 21 Intake & Output 10/16/16 10/16/16 07:00 19:00 Intake Total 810 ml Output Total 0 ml Balance 810 ml Intake Oral 240 ml IV Total 570 ml Stool Total 0 ml # Voids 5 # Bowel Movements 0 Physical Exam CONSTITUTIONAL/GENERAL: This is an elderly, confused patient. TUBES/LINES/DRAINS: PIV, SCDs. SKIN: No jaundice, rashes, or lesions. Ecchymoses on upper extremities. Bilateral hip dressings in place, LUE splint in place. CARDIOVASCULAR: Regular rate and rhythm without murmurs, gallops, or rubs. No JVD. RESPIRATORY/CHEST: Symmetric, unlabored respirations. Clear to auscultation. GASTROINTESTINAL: Abdomen soft, non-tender, nondistended. Bowel sounds present. GENITOURINARY: Without palpable bladder distension. MUSCULOSKELETAL: Extremities with trace edema. No mottling or clubbing. NEUROLOGICAL: Awake and alert, confused. Sentences more clear today, able to answer some simple questions. PSYCHIATRIC: Confused, more clear compared to day prior. . Diagnostic Tests Laboratory Laboratory Tests Test 10/14/16 10/14/16 10/15/16 10/16/16 03:20 05:50 04:33 05:29 White Blood Count 6.2 TH/MM3 11.5 TH/MM3 13.6 TH/MM3 (4.0-11.0) (4.0-11.0) (4.0-11.0) Red Blood Count 4.08 MIL/MM3 3.49 MIL/MM3 3.24 MIL/MM3 (4.00-5.30) (4.00-5.30) (4.00-5.30) Hemoglobin 10.9 GM/DL 9.5 GM/DL 8.8 GM/DL (11.6-15.3) (11.6-15.3) (11.6-15.3) Hematocrit 34.0 % 28.8 % 26.8 % (35.0-46.0) (35.0-46.0) (35.0-46.0) Mean Corpuscular Volume 83.4 FL 82.8 FL 82.8 FL (80.0-100.0) (80.0-100.0) (80.0-100.0) Mean Corpuscular Hemoglobin 26.7 PG 27.3 PG 27.3 PG (27.0-34.0) (27.0-34.0) (27.0-34.0) Mean Corpuscular Hemoglobin 32.0 % 33.0 % 33.0 % Concent (32.0-36.0) (32.0-36.0) (32.0-36.0) Red Cell Distribution Width 14.9 % 14.9 % 14.8 % (11.6-17.2) (11.6-17.2) (11.6-17.2) Platelet Count 389 TH/MM3 371 TH/MM3 347 TH/MM3 (150-450) (150-450) (150-450) Mean Platelet Volume 7.4 FL 7.5 FL 7.9 FL (7.0-11.0) (7.0-11.0) (7.0-11.0) Neutrophils (%) (Auto) 70.8 % 80.7 % 82.4 % (16.0-70.0) (16.0-70.0) (16.0-70.0) Lymphocytes (%) (Auto) 17.4 % 9.7 % 9.9 % (9.0-44.0) (9.0-44.0) (9.0-44.0) Monocytes (%) (Auto) 7.9 % (0.0-8.0) 8.7 % (0.0-8.0) 6.8 % (0.0-8.0) Eosinophils (%) (Auto) 3.1 % (0.0-4.0) 0.4 % (0.0-4.0) 0.5 % (0.0-4.0) Basophils (%) (Auto) 0.8 % (0.0-2.0) 0.5 % (0.0-2.0) 0.4 % (0.0-2.0) Neutrophils # (Auto) 4.4 TH/MM3 9.3 TH/MM3 11.2 TH/MM3 (1.8-7.7) (1.8-7.7) (1.8-7.7) Lymphocytes # (Auto) 1.1 TH/MM3 1.1 TH/MM3 1.4 TH/MM3 (1.0-4.8) (1.0-4.8) (1.0-4.8) Monocytes # (Auto) 0.5 TH/MM3 1.0 TH/MM3 0.9 TH/MM3 (0-0.9) (0-0.9) (0-0.9) Eosinophils # (Auto) 0.2 TH/MM3 0.0 TH/MM3 0.1 TH/MM3 (0-0.4) (0-0.4) (0-0.4) Basophils # (Auto) 0.1 TH/MM3 0.1 TH/MM3 0.1 TH/MM3 (0-0.2) (0-0.2) (0-0.2) CBC Comment DIFF FINAL DIFF FINAL DIFF FINAL Differential Comment Prothrombin Time 12.1 SEC (9.8-11.6) Prothromb Time International 1.1 RATIO Ratio Activated Partial 28.5 SEC Thromboplast Time (24.3-30.1) Sodium Level 144 MEQ/L 140 MEQ/L 141 MEQ/L (136-145) (136-145) (136-145) Potassium Level 3.5 MEQ/L 3.3 MEQ/L 3.4 MEQ/L (3.5-5.1) (3.5-5.1) (3.5-5.1) Chloride Level 107 MEQ/L 105 MEQ/L 106 MEQ/L (98-107) (98-107) (98-107) Carbon Dioxide Level 29.6 MEQ/L 27.8 MEQ/L 25.7 MEQ/L (21.0-32.0) (21.0-32.0) (21.0-32.0) Anion Gap 7 MEQ/L (5-15) 7 MEQ/L (5-15) 9 MEQ/L (5-15) Blood Urea Nitrogen 21 MG/DL (7-18) 8 MG/DL (7-18) 12 MG/DL (7-18) Creatinine 0.62 MG/DL 0.48 MG/DL 0.35 MG/DL (0.50-1.00) (0.50-1.00) (0.50-1.00) Estimat Glomerular Filtration 91 ML/MIN (>89) 122 ML/MIN 176 ML/MIN Rate (>89) (>89) Random Glucose 122 MG/DL 117 MG/DL 95 MG/DL (74-106) (74-106) (74-106) Calcium Level 8.6 MG/DL 8.2 MG/DL 8.6 MG/DL (8.5-10.1) (8.5-10.1) (8.5-10.1) Total Bilirubin 0.3 MG/DL 0.3 MG/DL (0.2-1.0) (0.2-1.0) Aspartate Amino Transf 25 U/L (15-37) 32 U/L (15-37) (AST/SGOT) Alanine Aminotransferase 29 U/L (10-53) 24 U/L (10-53) (ALT/SGPT) Alkaline Phosphatase 64 U/L (45-117) 68 U/L (45-117) Total Protein 5.9 GM/DL 5.8 GM/DL (6.4-8.2) (6.4-8.2) Albumin 2.8 GM/DL 2.7 GM/DL (3.4-5.0) (3.4-5.0) Blood Type A POSITIVE Antibody Screen NEGATIVE Blood Bank Comment Urine Color YELLOW (YELLW/STRAW) Urine Turbidity HAZY (CLEAR) Urine pH 7.0 (5.0-8.5) Urine Specific [place] 1.019 (1.002-1.035) Urine Protein TRACE mg/dL (NEG-TRACE) Urine Glucose (UA) NEG mg/dL (NEG) Urine Ketones NEG mg/dL (NEG) Urine Occult Blood TRACE (NEG) Urine Nitrite NEG (NEG) Urine Bilirubin NEG (NEG) Urine Urobilinogen LESS THAN 2.0 MG/DL (LESS THAN 2.0) Urine Leukocyte Esterase TRACE (NEG) Urine RBC 6 /hpf (0-3) Urine WBC 3 /hpf (0-5) Urine Squamous Epithelial 1 /hpf (0-5) Cells Urine Amorphous Sediment RARE Urine Mucus FEW /lpf (OCC) Microscopic Urinalysis Comment CATH-CULT NOT IND Magnesium Level 2.0 MG/DL (1.5-2.5) Thyroid Stimulating Hormone 0.824 uIU/ML 3rd Gen (0.358-3.740) Result Diagram: 10/16/16 0529 10/16/16 0529 Imaging Last Impressions Pelvis X-Ray 10/14/16 0319 Signed Impressions: Service Date/Time: Friday, October 14, 2016 03:39 - CONCLUSION: Nondisplaced fracture through the neck of the proximal left femur. Ceasar Duran MD Chest X-Ray 10/14/16 0319 Signed Impressions: Service Date/Time: Friday, October 14, 2016 03:37 - CONCLUSION: No acute intrathoracic disease. Ceasar Duran MD Wrist X-Ray 10/14/16 0000 Signed Impressions: Service Date/Time: Friday, October 14, 2016 10:52 - CONCLUSION: Fluoroscopic images during placement of compression plate along the distal radius fixating fracture. Ulnar styloid fracture noted. Suraj Montalvo MD Pelvis CT 10/14/16 0000 Signed Impressions: Service Date/Time: Friday, October 14, 2016 04:03 - CONCLUSION: 1. Nondisplaced mildly impacted fracture through the neck of the proximal left femur 2. Primary degenerative changes of the lower lumbar spine and pelvis. Ceasar Duran MD Hip and Pelvis X-Ray 10/14/16 0000 Signed Impressions: Service Date/Time: Friday, October 14, 2016 11:28 - CONCLUSION: Left hip arthroplasty. Suraj Montalvo MD Head CT 10/14/16 0000 Signed Impressions: Service Date/Time: Friday, October 14, 2016 03:59 - CONCLUSION: 1. Bilateral cortical atrophy. Otherwise unremarkable CT brain for patient's age. 2. Focal soft tissue swelling left frontal/parietal area. Ceasar Duran MD Cervical Spine CT 10/14/16 0000 Signed Impressions: Service Date/Time: Friday, October 14, 2016 03:59 - CONCLUSION: 1. No acute bony fracture. 2. Primary bony degenerative changes, disc degeneration and disc space narrowing throughout the cervical spine. 3. Bilateral facet arthritis at multiple levels. Ceasar Duran MD . Assessment and Plan Disease Oriented Problem List: (1) Dementia (2) Fall (3) Closed left hip fracture (4) Closed fracture of left wrist Symptom Scale: (1) Pain 0-10 Scale: Unable to quantify Comment: patient with dementia unable to quantify or qualify pain, appears painful with movement. Points to her left LE hip area when asked about pain. . (2) Confusion 0-10 Scale: Unable to quantify Comment: patient with dementia and delirium. . Pertinent Non-Medical Issues Psychosocial: . Support by children in [place]. Spiritual: Unknown. Legal: Patient is incapacitated and will not regain capacity. Designated health care surrogate, Mariia Castano though all children appear to be working together to make decisions. Ethical issues impacting care: No known concerns at this time. . Important Contacts * Sanna, daughter/[facility]: [phone] or [phone] * Tanisha, daughter: [phone] or [phone] (cell) . Prognosis Ms. Castano is an 89-year-old female with progressively worsening dementia since summer 2015 when her of 69 years now with recent fracture of right hip and admitted with left hip and left wrist fractures. Given underlying dementia and ongoing decline, overall prognosis appears poor for meaningful recovery. . Code Status: Full Code (family considering code status.) Plan * Patient is incapacitated and will not regain capacity. Designated health care surrogate, Mariia Castano though all children appear to be working together to make decisions. * FULL CODE * Palliative care spoke with caregiver, Jackie at bedside. Left message for daughter, Mariia Calderon ([facility]) in [place] to introduce palliative care and provide update. Goals remain aggressive at this time. * SYMPTOMS: Pain: pain with movement, she is unable to quantify or qualify pain due to dementia/ delirium. Has PRN Hydrocodone and Morphine, sparing need. Will monitor. Confusion: improving slightly today, secondary to dementia likely complicated by post op delirium. * Palliative care will continue to follow throughout hospital course to assist with symptom management and clarification of goals as needed. Attestation To help prompt me to consider important information that might be impacting today's encounter and assessment, information from prior notes written by myself or my colleagues may have been "brought forward" into today's note. My signature on this note, however, is an attestation that I personally performed the exam, history, and/or decision-making noted today, and, unless otherwise indicated, the interactions with patient, family, and staff as well as the review of records all occurred today. I also attest that the listed assessment and stated plan reflect my best clinical judgment today based on the combination of historical information, prior notes, and today's exam/ interactions. When time spent is documented, it refers only to time spent today by the signer, or if indicated, combined time spent today by collaborating physician/nurse practitioner. POOL FIELDS October 16, 2016 15:58
[2016-10-16 16:00] VITALS: BP 146/70; PULSE 95; RESP 18; TEMP 99.6; O2SAT 95
--- NOTE | 2016-10-16 16:22 | PD.ORT.PN ---
Subjective Subjective Remarks + dementia, no specific complaints Objective Vitals Vital Signs Date Time Temp Pulse Resp B/P Pulse Ox O2 Delivery O2 Flow Rate FiO2 10/16/16 12:00 98.8 90 19 142/80 95 10/16/16 08:00 99.8 95 20 171/77 95 10/16/16 03:16 97.9 94 17 159/69 93 10/15/16 23:39 96.7 97 17 132/78 94 10/15/16 23:17 Room Air 10/15/16 21:06 16 10/15/16 19:28 98.0 98 17 132/80 93 10/15/16 19:13 93 21 I/O 10/15/16 10/15/16 10/15/16 10/16/16 10/16/16 10/16/16 07:00 15:00 23:00 07:00 15:00 23:00 Intake Total 935 ml 240 ml 371 ml 439 ml Output Total 650 ml 0 ml Balance 285 ml 240 ml 371 ml 439 ml Intake Oral 120 ml 240 ml 120 ml 120 ml IV Total 815 ml 251 ml 319 ml Output Urine Total 650 ml Stool Total 0 ml # Voids 2 3 2 # Bowel Movements 0 0 Result Diagram: 10/16/16 0529 10/16/16 0529 Procedures Left hip hemiarthroplasty as treatment for femoral neck fracture. Left distal radius fracture open reduction and internal fixation of three-part intra-articular fracture. Objective Remarks Patient is confused today and slightly agitated. LLE Incision is C/D/I, with min serous on inner bandage. Patient moves toes and has sensation to light touch about the left foot. CKS in place. + NVI. No obvious tenderness to palpation of calf LUE Splint and sling intact and dry. Patient moves fingers. Patient has BCR X 5. Minimal swelling to hand with mild ecchymosis. Patient moves her left elbow WNLs. Assessment & Plan Assessment and Plan POD #2: Left hip hemiarthroplasty as treatment for femoral neck fracture. Left distal radius fracture open reduction and internal fixation of three-part intra-articular fracture. 1. NWB Left UE 2. WBAT Left LE 3. Patient is TTWB on RLE secondary to recent percutaneous screw fixation by outside physician 4. Platform walker for ambulation 5. Maintain splint and sling to LUE 6. Lovenox for DVT prophylaxis 7. Anticipatory discharge to SNF once medically cleared. There is a chance that the patient will be placed on Hospice if her delirium does not improve and if she continues to refuse medication. 8. F/U with Dr. Sanchez in the office in 1-2 weeks. Jani Sanchez MD October 16, 2016 16:22
[2016-10-16 20:08] VITALS: BP 149/79; PULSE 54; RESP 17; TEMP 99.2; O2SAT 96
[2016-10-16] MEDS: LATANOPROST 0.005% OPHT SOLN 2.5 ML BTL EACH EYE SCH (20:35)
[2016-10-16] MEDS: DONEPEZIL HCL 5 MG TAB PO SCH (20:35)
[2016-10-16] MEDS: ACETAMINOPHEN 325 MG TAB PO PRN (20:50)
[2016-10-17 00:28] VITALS: BP 168/74; PULSE 85; RESP 17; TEMP 96.4; O2SAT 95
[2016-10-17] MEDS: D5-1/2 NS + KCL 40 MEQ INJ 1,000 ML IV SCH ×3 (02:47→22:15)
[2016-10-17 04:09] VITALS: BP 159/60; PULSE 86; RESP 18; TEMP 98; O2SAT 96
[2016-10-17 07:47] LABS: AUTOMATED NEUTROPHIL # 9.5 TH/MM3 (1.8-7.7); BASOPHIL % 0.2 % (0.0-2.0); EOSINOPHIL # 0.2 TH/MM3 (0-0.4); EOSINOPHIL % 1.6 % (0.0-4.0); HEMO FLAGS DIFF FINAL; LYMPH % 12.5 % (9.0-44.0); LYMPHOCYTE # 1.5 TH/MM3 (1.0-4.8); MEAN CELL VOLUME 81.3 FL (80.0-100.0); MEAN CORPUSCULAR HEMOGLOBIN 27.4 PG (27.0-34.0); MEAN CORPUSCULAR HGB CONC 33.7 % (32.0-36.0); MONO % 6.2 % (0.0-8.0); NEUT % 79.5 % (16.0-70.0); PLATELET COUNT 466 TH/MM3 (150-450); RED CELL DISTRIBUTION WIDTH 14.8 % (11.6-17.2)
[2016-10-17 08:00] VITALS: BP 146/74; PULSE 88; RESP 18; TEMP 96.6; O2SAT 95
[2016-10-17 08:13] LABS: BICARBONATE 29.8 MEQ/L (21.0-32.0); MAGNESIUM 2.3 MG/DL (1.5-2.5); POTASSIUM 3.6 MEQ/L (3.5-5.1)
[2016-10-17] MEDS: SODIUM CHLORIDE 0.9% FLUSH 5 ML FLUSH IVF SCH ×2 (09:00→21:00)
[2016-10-17] MEDS: MULTIVITAMINS/MINERALS THERAPEUTIC TAB PO SCH ×2 (09:41→21:48)
[2016-10-17] MEDS: DOCUSATE SODIUM 100 MG CAP PO SCH (09:41)
[2016-10-17] MEDS: SERTRALINE HCL 50 MG TAB PO SCH (09:41)
[2016-10-17] MEDS: ENOXAPARIN SODIUM 40 MG/0.4 ML SYRINGE SQ SCH (09:41)
[2016-10-17] MEDS: POLYETHYLENE GLYCOL 17 GM PKG PO SCH (09:41)
[2016-10-17] MEDS: PANTOPRAZOLE SOD 40 MG DELAYED RELEASE TAB PO SCH (09:41)
[2016-10-17] MEDS: QUEtiapine FUMARATE 25 MG TAB PO SCH ×2 (09:42→21:48)
[2016-10-17] MEDS ORDERED: SOD PHOSPHATE/SOD BIPHOSPHATE (ADULT) ENEMA 133ML RECTAL ONE (11:30)
[2016-10-17] MEDS ORDERED: MAGNESIUM HYDROXIDE SUSP 30 ML CUP PO ONE (11:30)
[2016-10-17 11:56] VITALS: BP 167/77; PULSE 84; RESP 18; TEMP 99.1; O2SAT 95
[2016-10-17] MEDS: DRONABINOL 2.5 MG CAP PO SCH ×2 (12:39→16:00)
[2016-10-17] MEDS: ACETAMINOPHEN 325 MG TAB PO PRN ×2 (12:39→21:48)
[2016-10-17] MEDS ORDERED: DOCUSATE SODIUM 50 MG/SENNA 8.6 MG TAB PO ONE (13:00)
[2016-10-17 16:00] VITALS: BP 138/75; PULSE 84; RESP 16; TEMP 97.2; O2SAT 97
[2016-10-17] MEDS ORDERED: SODIUM PHOSPHATE INJ 15 MMOL in SODIUM CHLORIDE 0.9% INJ 150 ML IV ONE (18:00)
[2016-10-17 19:28] VITALS: BP 135/71; PULSE 79; RESP 17; TEMP 96.4; O2SAT 96
[2016-10-17] MEDS: DONEPEZIL HCL 5 MG TAB PO SCH (21:48)
[2016-10-17] MEDS: DOCUSATE SODIUM 50 MG/SENNA 8.6 MG TAB PO SCH (21:48)
[2016-10-17] MEDS: LATANOPROST 0.005% OPHT SOLN 2.5 ML BTL EACH EYE SCH (21:49)
--- NOTE | 2016-10-17 23:38 | HHI.PR ---
Subjective Remarks Patient seen this morning around 9:30 AM. Alertness and orientation much improved, however still disoriented. She does acknowledge that she is in the hospital. She denies any pain, however as reported to be complaining of bilateral hip pain. Tolerated some breakfast. Objective Vital Signs Date Time Temp Pulse Resp B/P Pulse Ox O2 Delivery O2 Flow Rate FiO2 10/17/16 19:28 96.4 79 17 135/71 96 10/17/16 16:00 97.2 84 16 138/75 97 10/17/16 11:56 99.1 84 18 167/77 95 10/17/16 08:00 96.6 88 18 146/74 95 10/17/16 04:09 98.0 86 18 159/60 96 10/17/16 00:28 96.4 85 17 168/74 95 10/16/16 23:40 Room Air I/O 10/16/16 10/16/16 10/16/16 10/17/16 10/17/16 10/17/16 07:00 15:00 23:00 07:00 15:00 23:00 Intake Total 439 ml 721 ml 791 ml 200 ml 240 ml Output Total 0 ml Balance 439 ml 721 ml 791 ml 200 ml 240 ml Intake Oral 120 ml 240 ml 240 ml 200 ml 240 ml IV Total 319 ml 481 ml 551 ml Stool Total 0 ml # Voids 2 3 3 3 3 3 # Bowel Movements 0 0 0 Result Diagram: 10/17/1670210/17/16 0703 Objective Remarks GENERAL: patient lying in bed. Patient awake, alert, oriented to person, and to the fact that she is in the hospital. Otherwise disoriented. SKIN: Warm and dry. HEAD: Normocephalic. EYES: No scleral icterus. No injection or drainage. NECK: Supple, trachea midline. No JVD. CARDIOVASCULAR: Regular rate and rhythm without murmurs, gallops, or rubs. RESPIRATORY: Breath sounds equal bilaterally. No accessory muscle use. GASTROINTESTINAL: Abdomen soft, non-tender, nondistended. MUSCULOSKELETAL: No cyanosis, or edema. postoperative hip not examined. Peripheral perfusion is intact. BACK: Nontender without obvious deformity. No CVA tenderness. A/P Assessment and Plan ==== 10/17/16 Somnolence much improved. -Appetite slightly improved, trying Marinol. Hypophosphatemia. Phosphorus 1.0. Phosphorus replaced. Follow. //Status post mechanical fall //Recent right hip ORIF and outside facility //ORIF left hip fracture 10/14 this admission -Head imaging with frontal hematoma, no other acute findings. -Postoperative management as per surgical service Pain management as per surgical service Monitor for return of bowel function. Multiple Laxatives again ordered. //Somnolence //Poor appetite -Trying Marinol. We'll monitor. //Severe Alzheimer's dementia. //Encephalopathy. Opioid induced. -Patient had been living at memory care unit. -She has been refusing medications here. -Daughter at bedside. Recommend continue to reorient as necessary. Try to avoid sedating medications. -10/17. Alertness much improved with decrease in sedating pain medications. Continue to monitor. //Hypokalemia. Need to monitor and replace as necessary. //Left wrist fracture. Status post fall. Management as per orthopedics. Appreciate assistance. //Prophylaxis. As per surgical service. Discharge Planning patient has severe Alzheimer's dementia. She will likely need rehabilitationfor bilateral hip fractures. Appreciate case management assistance. Hospice and palliative care following.. -awaiting bowel movement. May likely be up to go to SNF tomorrow. Victorino Stein MD October 17, 2016 23:38
[2016-10-18 00:19] VITALS: BP 158/77; PULSE 76; RESP 18; TEMP 96.4; O2SAT 95
[2016-10-18 04:20] VITALS: BP 144/69; PULSE 84; RESP 17; TEMP 96.3; O2SAT 96
[2016-10-18 07:31] VITALS: BP 163/77; PULSE 74; RESP 19; TEMP 95.7; O2SAT 97
[2016-10-18 07:35] LABS: AUTOMATED NEUTROPHIL # 7.3 TH/MM3 (1.8-7.7); BASOPHIL # 0.1 TH/MM3 (0-0.2); BASOPHIL % 0.6 % (0.0-2.0); EOSINOPHIL # 0.2 TH/MM3 (0-0.4); EOSINOPHIL % 2.3 % (0.0-4.0); HEMATOCRIT 26.6 % (35.0-46.0); HEMO FLAGS DIFF FINAL; LYMPHOCYTE # 1.4 TH/MM3 (1.0-4.8); MEAN CELL VOLUME 81.7 FL (80.0-100.0); MEAN CORPUSCULAR HEMOGLOBIN 27.3 PG (27.0-34.0); MEAN CORPUSCULAR HGB CONC 33.4 % (32.0-36.0); MONO % 6.4 % (0.0-8.0); NEUT % 75.7 % (16.0-70.0); PLATELET COUNT 433 TH/MM3 (150-450); RED BLOOD COUNT 3.25 MIL/MM3 (4.00-5.30); RED CELL DISTRIBUTION WIDTH 15.2 % (11.6-17.2); WHITE BLOOD COUNT 9.6 TH/MM3 (4.0-11.0)
[2016-10-18 07:52] LABS: BICARBONATE 28.4 MEQ/L (21.0-32.0); MAGNESIUM 2.2 MG/DL (1.5-2.5); POTASSIUM 3.4 MEQ/L (3.5-5.1)
[2016-10-18] MEDS: SODIUM CHLORIDE 0.9% FLUSH 5 ML FLUSH IVF SCH ×2 (09:00→20:31)
[2016-10-18] MEDS: POLYETHYLENE GLYCOL 17 GM PKG PO SCH (09:00)
[2016-10-18] MEDS: MULTIVITAMINS/MINERALS THERAPEUTIC TAB PO SCH ×2 (09:00→20:31)
[2016-10-18] MEDS: PANTOPRAZOLE SOD 40 MG DELAYED RELEASE TAB PO SCH (09:00)
[2016-10-18] MEDS ORDERED: BISACODYL 10 MG SUPP RECTAL ONE (09:45)
[2016-10-18] MEDS ORDERED: MAGNESIUM CITRATE SOLN 300 ML BTL PO ONE (09:45)
[2016-10-18] MEDS: QUEtiapine FUMARATE 25 MG TAB PO SCH ×2 (10:05→20:31)
[2016-10-18] MEDS: DOCUSATE SODIUM 50 MG/SENNA 8.6 MG TAB PO SCH ×2 (10:05→20:31)
[2016-10-18] MEDS: SERTRALINE HCL 50 MG TAB PO SCH (10:05)
[2016-10-18] MEDS: ACETAMINOPHEN 325 MG TAB PO PRN ×3 (10:06→23:59)
[2016-10-18] MEDS: ENOXAPARIN SODIUM 40 MG/0.4 ML SYRINGE SQ SCH (10:06)
[2016-10-18] MEDS: D5-1/2 NS + KCL 40 MEQ INJ 1,000 ML IV SCH (10:55)
[2016-10-18] MEDS ORDERED: SODIUM PHOSPHATE INJ 30 MMOL in SODIUM CHLOR 0.9% 250 ML INJ 250 ML IV ONE (11:00)
[2016-10-18] MEDS: DRONABINOL 2.5 MG CAP PO SCH ×2 (11:00→16:00)
[2016-10-18] MEDS ORDERED: DRON2.5 PO (11:08)
[2016-10-18] MEDS ORDERED: MILKSUS PO (11:08)
[2016-10-18 11:31] VITALS: BP 133/68; PULSE 81; RESP 19; TEMP 95.8; O2SAT 95
[2016-10-18] MEDS: POTASSIUM CHLOR 10 MEQ PREMIX 100 ML IV SCH ×3 (12:33→14:00)
[2016-10-18] MEDS ORDERED: SERO50TA PO (12:37)
[2016-10-18] MEDS ORDERED: SERO25TA PO (12:37)
[2016-10-18 15:48] VITALS: BP 135/66; PULSE 77; RESP 19; TEMP 97.9; O2SAT 96
[2016-10-18 20:05] VITALS: BP 145/74; PULSE 81; RESP 16; TEMP 98.4; O2SAT 97
[2016-10-18] MEDS: DONEPEZIL HCL 5 MG TAB PO SCH (20:31)
[2016-10-18] MEDS: LATANOPROST 0.005% OPHT SOLN 2.5 ML BTL EACH EYE SCH (20:31)
--- NOTE | 2016-10-18 23:38 | HHI.PR ---
Subjective Remarks Patient seen this morning. No acute changes. Patient denies any pain. Denies any chest pain or shortness of breath. Objective Vital Signs Date Time Temp Pulse Resp B/P Pulse Ox O2 Delivery O2 Flow Rate FiO2 10/18/16 20:05 98.4 81 16 145/74 97 10/18/16 15:48 97.9 77 19 135/66 96 10/18/16 11:31 95.8 81 19 133/68 95 10/18/16 07:31 95.7 74 19 163/77 97 10/18/16 04:20 96.3 84 17 144/69 96 10/18/16 00:19 96.4 76 18 158/77 95 I/O 10/17/16 10/17/16 10/17/16 10/18/16 10/18/16 10/18/16 07:00 15:00 23:00 07:00 15:00 23:00 Intake Total 791 ml 200 ml 240 ml 240 ml 120 ml Balance 791 ml 200 ml 240 ml 240 ml 120 ml Intake Oral 240 ml 200 ml 240 ml 240 ml 120 ml IV Total 551 ml # Voids 3 3 3 3 3 # Bowel Movements 0 0 0 0 Result Diagram: 10/18/16 0657 10/18/16 0657 Objective Remarks GENERAL: patient lying in bed. Patient awake, alert, oriented to person, and to the fact that she is in the hospital. Otherwise disoriented.exam essentially unchanged from yesterday. SKIN: Warm and dry. HEAD: Normocephalic. EYES: No scleral icterus. No injection or drainage. NECK: Supple, trachea midline. No JVD. CARDIOVASCULAR: Regular rate and rhythm without murmurs, gallops, or rubs. RESPIRATORY: Breath sounds equal bilaterally. No accessory muscle use. GASTROINTESTINAL: Abdomen soft, non-tender, nondistended. MUSCULOSKELETAL: No cyanosis, or edema. postoperative hip not examined. Peripheral perfusion is intact. BACK: Nontender without obvious deformity. No CVA tenderness. A/P Assessment and Plan ==== 10/17/16 Stable alertness. -Appetite slightly improved, trying Marinol. Hypophosphatemia. Phosphorus 1.3. IV replacement. Monitor. Constipation. Laxatives again ordered. Hypokalemia. Potassium 3.4. Replace. Monitor. Plan for discharge, however. Absence of bowel movement - will plan for discharge if patient has bowel movement. //Status post mechanical fall //Recent right hip ORIF and outside facility //ORIF left hip fracture 10/14 this admission -Head imaging with frontal hematoma, no other acute findings. -Postoperative management as per surgical service Pain management as per surgical service Monitor for return of bowel function. Multiple Laxatives again ordered. //Somnolence //Poor appetite -Trying Marinol. We'll monitor. //Severe Alzheimer's dementia. //Encephalopathy. Opioid induced. -Patient had been living at memory care unit. -She has been refusing medications here. -Daughter at bedside. Recommend continue to reorient as necessary. Try to avoid sedating medications. -10/17. Alertness much improved with decrease in sedating pain medications. Continue to monitor. //Hypokalemia. Need to monitor and replace as necessary. //Left wrist fracture. Status post fall. Management as per orthopedics. Appreciate assistance. This has been casted. //Prophylaxis. As per surgical service. Discharge Planning Plan for discharge, however. Absence of bowel movement - will plan for discharge if patient has bowel movement. Victorino Stein MD October 18, 2016 23:38
[2016-10-19] VITALS: BP 130/80; PULSE 78; RESP 16; TEMP 98; O2SAT 97
[2016-10-19 04:00] VITALS: BP 151/75; PULSE 74; RESP 16; TEMP 98.2; O2SAT 97
[2016-10-19 07:25] LABS: BASOPHIL % 0.3 % (0.0-2.0); EOSINOPHIL # 0.3 TH/MM3 (0-0.4); EOSINOPHIL % 2.9 % (0.0-4.0); HEMO FLAGS DIFF FINAL; LYMPH % 17.5 % (9.0-44.0); LYMPHOCYTE # 1.7 TH/MM3 (1.0-4.8); MEAN CELL VOLUME 81.6 FL (80.0-100.0); MEAN CORPUSCULAR HEMOGLOBIN 27.1 PG (27.0-34.0); MEAN CORPUSCULAR HGB CONC 33.2 % (32.0-36.0); MONO % 5.9 % (0.0-8.0); NEUT % 73.4 % (16.0-70.0); PLATELET COUNT 542 TH/MM3 (150-450); RED BLOOD COUNT 3.43 MIL/MM3 (4.00-5.30); RED CELL DISTRIBUTION WIDTH 14.8 % (11.6-17.2); WHITE BLOOD COUNT 9.5 TH/MM3 (4.0-11.0)
[2016-10-19 07:31] VITALS: BP 161/76; PULSE 79; RESP 18; TEMP 96.2; O2SAT 97
[2016-10-19 07:42] LABS: BICARBONATE 26.7 MEQ/L (21.0-32.0); MAGNESIUM 2.1 MG/DL (1.5-2.5); POTASSIUM 3.4 MEQ/L (3.5-5.1)
[2016-10-19] MEDS: SODIUM CHLORIDE 0.9% FLUSH 5 ML FLUSH IVF SCH (09:00)
[2016-10-19] MEDS: DOCUSATE SODIUM 50 MG/SENNA 8.6 MG TAB PO SCH (09:00)
[2016-10-19] MEDS: POLYETHYLENE GLYCOL 17 GM PKG PO SCH (09:00)
[2016-10-19] MEDS: MULTIVITAMINS/MINERALS THERAPEUTIC TAB PO SCH (09:11)
[2016-10-19] MEDS: QUEtiapine FUMARATE 25 MG TAB PO SCH (09:11)
[2016-10-19] MEDS: SERTRALINE HCL 50 MG TAB PO SCH (09:11)
[2016-10-19] MEDS: PANTOPRAZOLE SOD 40 MG DELAYED RELEASE TAB PO SCH (09:12)
[2016-10-19] MEDS: ENOXAPARIN SODIUM 40 MG/0.4 ML SYRINGE SQ SCH (09:19)
[2016-10-19] MEDS: ACETAMINOPHEN 325 MG TAB PO PRN (09:24)
[2016-10-19] MEDS ORDERED: POTASSIUM CHLORIDE 25 MEQ EFFERVESCENT TAB PO ONE (09:45)
[2016-10-19] MEDS: DRONABINOL 2.5 MG CAP PO SCH (11:00)
[2016-10-19 11:31] VITALS: BP 140/73; PULSE 83; RESP 18; TEMP 96.5; O2SAT 95
--- NOTE | 2016-10-20 10:27 | HHI.DS ---
Discharge Summary Admission Date October 14, 2016 at 05:44 Discharge Date: October 19, 2016 Admitting Diagnosis left hip fracture. (1) Fall ICD Code: W19.XXXA (2) Closed left hip fracture ICD Code: S72.002A (3) Closed fracture of left wrist ICD Code: S62.102A (4) Dementia ICD Code: F03.90 Procedures ORIF left hip fracture Brief History - From Admission This is an 89-year-old female with a PMH of Dementia and Anxiety who was brought to the ER by EMS from SNF after a witnessed mechanical fall by staff. No LOC reported, however patient was noted to have head trauma with subsequent hematoma to left forehead. Upon EMS arrival, patient noted to have obvious deformity of left wrist, s/p splint and c/o left hip pain. [facility] and transferred to SNF at time of discharge. On arrival, BP 137/83, HR 67, O2 sat 100% on RA, Afebrile. CBC essentially unremarkable. Chemistry unremarkable except for BU and 21. INR 1.1. Wrist X- ray with left Collies fracture. CT Pelvis with nondisplaced mildly impacted fracture through the neck of proximal left femur. CT Head with no acute findings except for focal soft tissue swelling left frontal/parietal area. CT C -spine with no acute findings. CXR with no acute findings. Pt's Orthopedist contacted by ER physician, recommended consultation w/ Dr. Sanchez for surgical intervention. CBC/BMP: 10/19/16 0633 10/19/16 0633 Significant Findings Laboratory Tests Test 10/18/16 10/19/16 06:57 06:33 Red Blood Count 3.25 MIL/MM3 3.43 MIL/MM3 (4.00-5.30) (4.00-5.30) Hemoglobin 8.9 GM/DL 9.3 GM/DL (11.6-15.3) (11.6-15.3) Hematocrit 26.6 % 28.0 % (35.0-46.0) (35.0-46.0) Neutrophils (%) (Auto) 75.7 % 73.4 % (16.0-70.0) (16.0-70.0) Potassium Level 3.4 MEQ/L 3.4 MEQ/L (3.5-5.1) (3.5-5.1) Creatinine 0.29 MG/DL 0.31 MG/DL (0.50-1.00) (0.50-1.00) Calcium Level 8.4 MG/DL (8.5-10.1) Phosphorus Level 1.3 MG/DL (2.5-4.9) Albumin 2.4 GM/DL 2.6 GM/DL (3.4-5.0) (3.4-5.0) Platelet Count 542 TH/MM3 (150-450) PE at Discharge GENERAL: patient lying in bed. Patient awake, alert, oriented to person, and to the fact that she is in the hospital. Otherwise disoriented.patient makes good eye contact. Exam essentially unchanged from yesterday with the exception of casting of left wrist. SKIN: Warm and dry. HEAD: Normocephalic. EYES: No scleral icterus. No injection or drainage. NECK: Supple, trachea midline. No JVD. CARDIOVASCULAR: Regular rate and rhythm without murmurs, gallops, or rubs. RESPIRATORY: Breath sounds equal bilaterally. No accessory muscle use. GASTROINTESTINAL: Abdomen soft, non-tender, nondistended. MUSCULOSKELETAL: No cyanosis, or edema. postoperative hip not examined. Peripheral perfusion is intact.left wrist has been casted. BACK: Nontender without obvious deformity. No CVA tenderness. Pt update on day of discharge patient appears to deny pain. Confused as before. No acute changes. phosphorus resolved after replacement. Potassium was replaced. Hospital Course Patient underwent ORIF of left hip fracture. She experienced confusion postoperatively, however this improved to baseline. Due to agitation in the setting of Alzheimer's, we'll try to avoid benzodiazepines, and narcotics. Agitation managed with Seroquel. Patient had poor appetite, however improved with feeding, Marinol. Palliative care was consulted, and family decides against hospice, wishes to avoid any feeding tubes, and anddepending on patient' s future course, may consider in the future for problem-based summary from most recent progress note, please see below. ==== 10/19/16 Stable alertness. -Appetite slightly improved, trying Marinol. Hypophosphatemia. Phosphorus 1.3. IV replacement. Monitor. Constipation. Laxatives again ordered. Hypokalemia. Potassium 3.4. Replace. Monitor. Plan for discharge, however. Absence of bowel movement - will plan for discharge if patient has bowel movement. //Status post mechanical fall //Recent right hip ORIF and outside facility //ORIF left hip fracture 10/14 this admission -Head imaging with frontal hematoma, no other acute findings. -Postoperative management as per surgical service Pain management as per surgical service Monitor for return of bowel function. Multiple Laxatives again ordered. //Somnolence //Poor appetite -Trying Marinol. We'll monitor. //Severe Alzheimer's dementia. //Encephalopathy. Opioid induced. -Patient had been living at memory care unit. -She has been refusing medications here. -Daughter at bedside. Recommend continue to reorient as necessary. Try to avoid sedating medications. -10/17. Alertness much improved with decrease in sedating pain medications. Continue to monitor. //Hypokalemia. Need to monitor and replace as necessary. //Left wrist fracture. Status post fall. Management as per orthopedics. Appreciate assistance. This has been casted. //Prophylaxis. As per surgical service. Discharge Planning Plan for discharge, however. Absence of bowel movement - will plan for discharge if patient has bowel movement. Pt Condition on Discharge: Good Discharge Disposition: Discharge to SNF Discharge Time: > 30 minutes Discharge Instructions DIET: Follow Instructions for: As Tolerated, No Restrictions Additional Diet Instructions: Ensure Plus or enlive TID. Activities you can perform: Partial Weight Bearing Other Activity Instructions: please see orthopedic insructions for activity s/p bilater hip replacements. Follow up Referrals: Orthopedics - 2 Weeks with Jani Sanchez MD New Orders: BASIC METABOLIC PROF - 3-5 Days CBC NO DIFF - 3-5 Days MAGNESIUM (MG) - 3-5 Days PHOSPHORUS (PO4) - 3-5 Days New Medications: Aspirin (Aspirin) 325 Mg Tab 325 MG PO DAILY Start Aspirin after Lovenox is completed. Prevent Blood Clot # 30 Ref 0 TAB Enoxaparin Inj (Lovenox Inj) 40 Mg/0.4 Ml Syr 40 MG SQ DAILY Start Aspirin after Lovenox is completed. Blood Clot Prevention # 10 Ref 0 SYRINGE Hydrocodone-Acetaminophen ([place]) 5-325 mg Tab 1-2 TAB PO Q4H PRN PAIN #60 Ref 0 TAB Quetiapine (Seroquel) 50 Mg Tab 50 MG PO HS sleep #30 Ref 0 TAB Dronabinol (Marinol) 2.5 Mg Cap 2.5 MG PO BID@11,16 appetite #14 CAP Magnesium Hydroxide Liq (Milk of Magnesia Liq) 400 Mg/5 Ml Susp 30 ML PO DAILY PRN CONSTIPATION Days 30 BOTTLE Changed Medications: Quetiapine (Seroquel) 25 Mg Tab 25 MG PO AC BREAKFAST mood #60 Ref 0 TAB (Changed from: BID) Continued Medications: Docusate Sodium (Docusate Sodium) 100 Mg Cap 100 MG PO BID Prevent Constipation #60 Ref 0 CAP Donepezil (Donepezil) 5 Mg Tab 5 MG PO HS Dementia #30 Ref 0 TAB Latanoprost Opth Drops (Latanoprost Opth Drops) 0.005% Drops 1 DROP EACH EYE HS Refrigerate until opened. Glaucoma #2.5 Ref 0 ML Pantoprazole (Pantoprazole) 40 Mg Tab 40 MG PO DAILY Reflux #30 Ref 0 TAB Polyethylene Glycol 3350 Powder (Polyethylene Glycol 3350 Powder) 17 Gm Pow 17 GM PO DAILY Constipation #1 Ref 0 BOTTLE Sennosides-Docusate Sodium (Senokot S) 8.6-50 Mg Tab 2 TAB PO DAILY Constipation Ref 0 TAB Sertraline (Zoloft) 50 Mg Tab 50 MG PO DAILY #30 Ref 0 TAB Discontinued Medications: Acetaminophen (Tylenol) 325 Mg Cap 650 MG PO Q6H PRN PAIN SCALE 1 TO 4 Ref 0 CAP Alprazolam (Xanax) 0.5 Mg Tab 0.5 MG PO Q8H PRN ANXIETY Ref 0 TAB Enoxaparin Inj (Lovenox Inj) 30 Mg/0.3 Ml Syr 30 MG SQ DAILY Blood Clot Prevention Ref 0 SYRINGE Hydrocodone-Chlorpheniramine 12 HR Liq (Hydrocodone-Chlorpheniramine 12 HR Liq) 10-8 Mg/5 Ml Liq 5 ML PO Q12H PRN COUGH AND/OR COLD SYMPTOMS Ref 0 ML Magnesium Hydroxide Liq (Milk of Magnesia Liq) 400 Mg/5 Ml Susp 30 ML PO ONCE Indigestion #30 Ref 0 ML Nystatin Liq (Nystatin Liq) 100,000 unit/ml Susp 5 ML SWISH-SWAL QID Infection Ref 0 ML Victorino Stein MD October 20, 2016 10:27
== END 2016-10-19 11:47 | DRG 469 ==
LOC: NEPC 03:14 → NEDA 05:44 → N06A 06:57
PROVIDERS: ADMIT Internal Medicine; ATTEND Internal Medicine
PROC: 0PSJ04Z Reposition Left Radius with Internal Fixation Device, Open Approach (ICD-10-PCS; principal; 2016-10-14 08:45)
PROC: 0SRS0JA Replacement of Left Hip Joint, Femoral Surface with Synthetic Substitute, Uncemented, Open Approach (ICD-10-PCS; 2016-10-14 08:45)
DX: S72.002A Fracture of unspecified part of neck of left femur, initial encounter for closed fracture (principal); G93.40 Encephalopathy, unspecified; G30.9 Alzheimer's disease, unspecified; E83.39 Other disorders of phosphorus metabolism; F05 Delirium due to known physiological condition; S52.579A Other intraarticular fracture of lower end of unspecified radius, initial encounter for closed fracture; F02.80 Dementia in other diseases classified elsewhere, unspecified severity, without behavioral disturbance, psychotic disturbance, mood disturbance, and anxiety; E87.6 Hypokalemia; W01.0XXA Fall on same level from slipping, tripping and stumbling without subsequent striking against object, initial encounter; Y92.9 Unspecified place or not applicable; I10 Essential (primary) hypertension; K59.00 Constipation, unspecified; S00.83XA Contusion of other part of head, initial encounter; Z51.5 Encounter for palliative care; Z79.82 Long term (current) use of aspirin; Z79.899 Other long term (current) drug therapy; Z99.3 Dependence on wheelchair
CPT/HCPCS: 70450; 71010; 72125; 72170; 72192; 73100; 73110; 73502; 76000; 80048; 80053; 80069; 81001; 83735; 84443; 85025; 85610; 85730; 86850; 86900; 86901; 93005; 96374; C1713; C1776; J0690; J1580; J1650; J2270; J2370; J2405; J3010; J3370; J3480; J7030; J7050; J7120; L1830; Q0167